=== PATIENT | male | born 1975 | race Caucasian/White ===

== ENCOUNTER 2020-02-22 10:12 | Outpatient (REF) | payer MEDICARE, MEDICAID, SELFPAY ==
[2020-02-22 11:38] LABS: Alanine Aminotransferase 27 U/L (0-40); Albumin Level 4.2 g/dL (3.5-5.0); Alkaline Phosphatase 69 U/L (39-117); Aspartate Amino Transferase 22 U/L (5-37); Bilirubin Direct 0.2 mg/dL (0.0-0.5); Bilirubin Total 0.6 mg/dL (0.0-1.0); Total Protein 7.1 g/dL (6.5-8.0)
[2020-02-22 11:44] LABS: Valproate 75.6 mcg/mL (50.0-100.0)
== END 2020-02-22 10:13 | disposition home or self-care (01) ==
LOC: HO.LAB 10:12
PROVIDERS: PCP Internal Medicine; Visit Provider General Practice
DX: F31.77 Bipolar disorder, in partial remission, most recent episode mixed (principal); F63.9 Impulse disorder, unspecified; Z79.899 Other long term (current) drug therapy
CPT/HCPCS: 80076; 80164

== ENCOUNTER 2020-06-14 11:12 | Outpatient (REF) | payer MEDICARE, MEDICAID, SELFPAY ==
[2020-06-14 11:50] LABS: Hematocrit 46.8 % (42-52); Hemoglobin 15.6 g/dl (14.0-18.0); Mean Corpuscular HGB Conc 33.3 g/dl (31.0-36.0); Mean Corpuscular Hemoglobin 29.3 pg (27.0-33.0); Platelet Count 226 X10*3/uL (160-400); Red Blood Count 5.32 X10*6/uL (4.60-5.80); Red Cell Distribution Width 12.8 % (11.0-16.0); White Blood Count 9.2 X10*3/uL (4.8-10.8)
[2020-06-14 12:03] LABS: Estimated Average Glucose 105 mg/dL; Hemoglobin A1c % 5.3 %
[2020-06-14 12:25] LABS: Alanine Aminotransferase 34 U/L (0-40); Albumin Level 4.7 g/dL (3.5-5.0); Alkaline Phosphatase 89 U/L (39-117); Anion Gap 11 (12-20); Aspartate Amino Transferase 30 U/L (5-37); Bilirubin Total 0.6 mg/dL (0.0-1.0); Blood Urea Nitrogen 15 mg/dL (9-16); Calcium 9.6 mg/dL (8.4-10.2); Carbon Dioxide 27 mmol/L (22-29); Chloride 101 mmol/L (96-108); Cholesterol 178 mg/dL; Estimated Glomerular Filt Rate > 60; Glucose Fasting 97 mg/dL (60-99); HDL Cholesterol 53 mg/dL; LDL Cholesterol Calculated 103 mg/dl; Potassium 4.2 mmol/L (3.3-5.1); Sodium 135 mmol/L (135-145); Total Protein 8.1 g/dL (6.5-8.0); Triglycerides 111 mg/dL
[2020-06-14 12:44] LABS: TSH reflex Free T4 2.01 uIU/mL (0.32-4.0)
== END 2020-06-14 11:13 | disposition home or self-care (01) ==
LOC: HO.LAB 11:12
PROVIDERS: PCP Internal Medicine; Visit Provider Physician Assistant
DX: E66.01 Morbid (severe) obesity due to excess calories (principal); Z68.41 Body mass index [BMI] 40.0-44.9, adult; Z13.1 Encounter for screening for diabetes mellitus
CPT/HCPCS: 36415; 80053; 80061; 83036; 84443; 85027

== ENCOUNTER 2021-05-29 09:19 | Outpatient (REF) | payer MEDICARE, MEDICAID, SELFPAY ==
[2021-05-29 10:16] LABS: Hematocrit 43.2 % (42.0-52.0); Hemoglobin 14.5 g/dl (14.0-18.0); Mean Corpuscular HGB Conc 33.6 g/dl (31.0-36.0); Mean Corpuscular Hemoglobin 29.7 pg (27.0-33.0); Mean Corpuscular Volume 88.3 fL (80.0-98.0); Mean Platelet Volume 10.8 fL (9.4-12.4); Platelet Count 225 X10*3/uL (160-400); Red Blood Count 4.89 X10*6/uL (4.60-5.80); Red Cell Distribution Width 12.9 % (11.0-16.0); White Blood Count 7.5 X10*3/uL (4.8-10.8)
[2021-05-29 10:49] LABS: Estimated Average Glucose 108 mg/dL; Hemoglobin A1c % 5.4 %
[2021-05-29 10:57] LABS: Valproate 80.1 mcg/mL (50.0-100.0)
[2021-05-29 11:07] LABS: Alanine Aminotransferase 34 U/L (0-40); Albumin Level 4.4 g/dL (3.5-5.0); Alkaline Phosphatase 79 U/L (39-117); Aspartate Amino Transferase 26 U/L (5-37); Bilirubin Direct 0.2 mg/dL (0.0-0.5); Bilirubin Total 0.5 mg/dL (0.0-1.0); Total Protein 7.7 g/dL (6.5-8.0)
[2021-05-29 11:14] LABS: Alanine Aminotransferase 35 U/L (0-40); Albumin Level 4.5 g/dL (3.5-5.0); Alkaline Phosphatase 79 U/L (39-117); Anion Gap 14 (12-20); Aspartate Amino Transferase 28 U/L (5-37); Bilirubin Total 0.6 mg/dL (0.0-1.0); Blood Urea Nitrogen 11 mg/dL (9-16); Calcium 9.8 mg/dL (8.4-10.2); Carbon Dioxide 25 mmol/L (22-29); Chloride 105 mmol/L (96-108); Cholesterol 160 mg/dL; Estimated Glomerular Filt Rate > 60; Glucose Fasting 112 mg/dL (60-99); HDL Cholesterol 52 mg/dL; LDL Cholesterol Calculated 91 mg/dl; Potassium 4.4 mmol/L (3.3-5.1); Sodium 140 mmol/L (135-145); Triglycerides 89 mg/dL
== END 2021-05-29 09:20 | disposition home or self-care (01) ==
LOC: HO.LAB 09:19
PROVIDERS: Absent Provider General Practice; PCP Physician Assistant; Visit Provider Physician Assistant
DX: Z13.220 Encounter for screening for lipoid disorders (principal); Z13.29 Encounter for screening for other suspected endocrine disorder; F31.77 Bipolar disorder, in partial remission, most recent episode mixed; I10 Essential (primary) hypertension; Z79.899 Other long term (current) drug therapy
CPT/HCPCS: 36415; 80053; 80061; 80076; 80164; 82248; 83036; 84443; 85027

== ENCOUNTER 2021-10-11 09:36 | Outpatient (REF) | payer MEDICARE, MEDICAID, SELFPAY ==
[2021-10-11 11:35] LABS: Valproate 67.5 mcg/mL (50.0-100.0)
== END 2021-10-11 09:37 | disposition home or self-care (01) ==
LOC: HO.LAB 09:36
PROVIDERS: PCP Physician Assistant; Visit Provider General Practice
DX: Z79.899 Other long term (current) drug therapy (principal)
CPT/HCPCS: 36415; 80164

== ENCOUNTER 2022-10-10 09:15 | Outpatient (REF) | payer MEDICARE, MEDICAID, SELFPAY ==
[2022-10-10 10:23] LABS: Hematocrit 42.9 % (42.0-52.0); Hemoglobin 14.1 g/dl (14.0-18.0); Mean Corpuscular HGB Conc 32.9 g/dl (31.0-36.0); Mean Corpuscular Hemoglobin 29.2 pg (27.0-33.0); Mean Corpuscular Volume 88.8 fL (80.0-98.0); Mean Platelet Volume 11.1 fL (9.4-12.4); Platelet Count 213 X10*3/uL (160-400); Red Blood Count 4.83 X10*6/uL (4.60-5.80); Red Cell Distribution Width 12.8 % (11.0-16.0); White Blood Count 7.2 X10*3/uL (4.8-10.8)
[2022-10-10 11:07] LABS: Alanine Aminotransferase 29 U/L (0-40); Albumin Level 4.2 g/dL (3.5-5.0); Alkaline Phosphatase 66 U/L (39-117); Anion Gap 13 (12-20); Aspartate Amino Transferase 22 U/L (5-37); Bilirubin Total 0.7 mg/dL (0.0-1.0); Blood Urea Nitrogen 14 mg/dL (9-16); Calcium 9.2 mg/dL (8.4-10.2); Carbon Dioxide 25 mmol/L (22-29); Chloride 106 mmol/L (96-108); Cholesterol 149 mg/dL; Estimated Glomerular Filt Rate > 60; Glucose Fasting 111 mg/dL (60-99); HDL Cholesterol 47 mg/dL; LDL Cholesterol Calculated 86 mg/dl; Potassium 4.1 mmol/L (3.3-5.1); Sodium 140 mmol/L (135-145); Total Protein 7.6 g/dL (6.5-8.0); Triglycerides 80 mg/dL
[2022-10-10 11:15] LABS: TSH reflex Free T4 1.95 uIU/mL (0.32-4.0)
== END 2022-10-10 09:16 | disposition home or self-care (01) ==
LOC: HO.LAB 09:15
PROVIDERS: PCP Physician Assistant; Visit Provider Physician Assistant
DX: I10 Essential (primary) hypertension (principal)
CPT/HCPCS: 36415; 80053; 80061; 84443; 85027

== ENCOUNTER 2022-12-05 15:34 | Outpatient (AMB) | payer MEDICARE, MEDICAID, SELFPAY ==
[2022-12-05 15:38] VITALS: BP 124/72; PULSE 75; O2SAT 98; BMI 51.7
--- NOTE | 2022-12-05 15:38 | A.OFFPC_ITS ---
Vital Signs 12/05/22 15:38 Height 5 ft 7 in Weight 330 lb BMI 51.7 BP 124/72 Blood Pressure Location Lt brachial Position Sitting Pulse 75 Pulse Source Pulse Oximeter Pulse Oximetry (%) 98 Oxygen Delivery Method Room Air Intake Visit Reasons: f/u HTN- Weight check. Intake Note: Patient is here to follow up on HTN and weight check. 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 Accompanied by: Rishi-Program Staff Allergies bee pollen [BEE STINGS] Allergy (Mild, Verified 12/05/22 15:44) SWELLING Medication List - Last Reconciled 12/05/22 by Carl Pena PA-C acetaminophen 1,000 mg (2 x 500 mg) PO Q6H PRN bismuth subsalicylate ([place] Bismuth) 524 mg (30 mL) PO QID PRN 30 days chlorhexidine gluconate 0.12% mL PO divalproex 250 mg PO BEDTIME divalproex 500 mg PO BID epinephrine (EpiPen) 0.3 mg (0.3 mL) IM Q10M PRN 30 days lisinopril 30 mg PO DAILY 90 days miscellaneous medical supply (Blood Pressure Cuff) As directed pantoprazole 20 mg PO DAILY 90 days Tobacco use date assessed: 09/04/22 Dental Screening Dental Screen Date: 12/05/22 Did you have a dental visit in the last 12 months?: Yes Did you have a dental problem in the last 6 months where you did not have access to dental care?: No Was dental information given to patient?: Patient has dentist HPI f/u HTN- Weight check. HPI Details Bryant is a 47-year-old male here today for a follow up. Patient has a past medical history of GERD, bipolar 1 disorder, obesity. ? . ? Bipolar: Followed by Psych, continues on divalproex and? feels well. Continues to work in [employer] now wearing long sleeves and long pants during his shifts to reduce his recurrence contact dermatitis poison kaitlynn. .. Hypertension:? Blood pressure noted to be elevated at previous office visit. We increased his lisinopril dose to 30 mg an blood pressures today much improved., .. Obesity:? Has lost 12 lb since last office visit. Has been more physically active and adapting to better eating habits..? Continues to be elevated BMI and will continue working on being more physically active and at that and better eating habits to reduce his weight. [facility] Medical History (Updated 12/05/22 @ 16:25 by Carl Pena PA-C) H/O anaphylactic shock Surgical History History of open reduction and internal fixation (ORIF) procedure Family History Father Diabetes CVD (cardiovascular disease) Mother No problems noted. Maternal Grandfather Myocardial infarction Social History Housing: House Housing Other:: Short Living-Shelter. Alcohol intake: current Alcohol intake frequency: holidays/special occasions only Patient Tobacco Use Status: Current someday Tobacco user e-Cigarette/Vaping Use: Never Used Second Hand Smoke Exposure: No service: No Current occupational status: employed Current occupation: [employer] Cognitive needs: No Hearing needs: No Vision needs: Yes (glasses) Questionnaire Thrive Questionnaire Date Thrive assessed: 09/04/22 MIRI-7 AMB Questionnaire MIRI-7 Date MIRI - 7 assessed: 09/04/22 Source: Developed by Drs. Hesham Vidal, Cherelle Gusman, Lex Eckert and colleagues, with an educational andrew from [employer]. Review of Systems Const Denies headache(s) Eyes Denies loss of vision ENT Denies vertigo, Denies dizziness, Denies headache(s) and Denies sore throat Card Denies chest pain, Denies leg edema and Denies lightheadedness Resp Denies cough, Denies hemoptysis and Denies wheezing GI Denies abdominal pain, Denies melena, Denies constipation, Denies diarrhea and Denies vomiting Denies dysuria, Denies urinary frequency and Denies urinary urgency Musc Denies arthralgias, Denies joint swelling, Denies numbness and Denies tingling Neuro Denies Abnormal speech present, Denies behavioral changes, Denies vertigo, Denies dizziness, Denies headache(s), Denies loss of vision, Denies memory loss, Denies numbness and Denies tingling Psych Denies anxiety, Denies behavioral changes, Denies depression, Denies memory loss and Denies panic attacks Faizan/Lymph Denies easy bleeding and Denies easy bruising Aller/Immun Denies wheezing Physical exam (Primary Care) Vital Signs: Last Vital Signs Pulse 75 12/05/22 15:38 BP 124/72 12/05/22 15:38 Pulse Ox 98 12/05/22 15:38 Oxygen Delivery Method Room Air 12/05/22 15:38 BMI result Body Mass Index 51.7 BMI Assessment/Plan discussion: High Tobacco/Smoking Status: Tobacco use Status Tobacco use date assessed 09/04/22 12/05/22 15:38 Patient Tobacco Use Status Current someday Tobacco 12/05/22 15:38 e-Cigarette/Vaping Use Never Used 12/05/22 15:38 Thrive Assessment: Date of Thrive Assessment Date Thrive assessed 09/04/22 12/05/22 15:38 Const Other: Obese General: no acute distress, alert and awake Nutritional Appearance: well nourished Orientation/consciousness: oriented to person, oriented to place and oriented to time HENMT Ears: TM's normal bilaterally General nose exam: Normal nasal mucous membranes and turbinates present Eyes Conjunctivae: conjunctivae normal Sclerae: sclerae normal Pupils: Equal, round and reactive pupils present Neck Neck: Yes no lymphadenopathy and Yes no JVD Thyroid: Thyroid normal Carotids: no bruits Resp Effort & Inspection: normal respiratory effort and not tachypneic Auscultation: no crackles, no rales, no rhonchi and no wheezes Cardio Rate: regular rate Rhythm: regular rhythm Heart sounds: no murmurs and normal S1 and S2 GI Palpation (GI): Soft to palpation, nontender, no hepatomegaly and no splenomegaly Auscultation: normal bowel sounds Skin General skin exam: no rashes or lesions noted and dry skin Neuro General: oriented to person, oriented to place and oriented to time Cranial nerves: Yes Equal, round and reactive pupils present Speech: No Abnormal speech present Gait exam (Neuro): Normal gait present Motor exam (neuro): no tremor noted Extrem Right upper extremity: full ROM Left upper extremity: full ROM Right lower extremity: full ROM; no edema Left lower extremity: full ROM; no edema Psych Mental Status: mental status grossly normal Speech and movement: Normal speech and movement present Affect: normal affect Attitude: cooperative Thought process: Normal thought process present Assessment and Plan Assessment & Plan (1) HTN (hypertension): Code(s): I10 - Essential (primary) hypertension Qualifiers: Hypertension type: primary hypertension Qualified Code(s): I10 - Essential (primary) hypertension Plan: Patient's blood pressure acceptable today in office. Will continue his current dose of lisinopril 30 mg with goal blood pressure to remain below 140/90 (2) Impaired glucose metabolism: Code(s): R73.09 - Other abnormal glucose Plan: Patient continues to slightly elevated fasting blood sugar. Will continue to work on lifestyle modifications and dietary adjustments to reduce his elevated fasting blood sugar. (3) Obese: Code(s): E66.9 - Obesity, unspecified Qualifiers: Body mass index: BMI 50.0-59.9 Obesity classification: adult class 3 (BMI >= 40) Obesity type: due to excess calories Serious obesity comorbidity presence: without serious comorbidity Qualified Code(s): E66.01 - Morbid (severe) obesity due to excess calories; Z68.43 - Body mass index [BMI] 50.0- 59.9, adult Plan: Patient does understand his BMI is over 50 and will continue working on lifestyle modifications to reduce his weight. Orders: Orders Comprehensive [place]. Panel Fast 6 Months I10 - Essential (primary) hypertension Complete Blood Count no Diff 6 Months K21.9 - Gastro-esophageal reflux disease without esophagitis Valproate 6 Months F31.75 - Bipolar disorder, in partial remission, most recent episode depressed Medications: New dextromethorphan-guaifenesin 5-100 mg/5 mL (Robitussin Cough-Chest Congestion DM) 10 mL PO Q4-8H 30 days PRN 118 mL 1RF cough Refilled epinephrine (EpiPen) for 2 doses 0.3 mg (0.3 mL) IM Q10M 30 days PRN 2 ea 0RF anaphylaxis Z87.892 - Personal history of anaphylaxis acetaminophen 1,000 mg (2 x 500 mg) PO Q6H PRN 90 caps 3RF fever or pain M54.9 - Dorsalgia, unspecified Coding Level of Care Code Est Pt Level 4 (97351) Diagnoses HTN (hypertension) I10 Hypertension type: primary hypertension Impaired glucose metabolism R73.09 Obese E66.01; Z68.43 Body mass index: BMI 50.0-59.9 Obesity classification: adult class 3 (BMI >= 40) Obesity type: due to excess calories Serious obesity comorbidity presence: without serious comorbidity
== END 2022-12-05 16:03 | disposition home or self-care (01) ==
PROVIDERS: Visit Provider Physician Assistant
DX: I10 Essential (primary) hypertension (principal); R73.09 Other abnormal glucose; E66.01 Morbid (severe) obesity due to excess calories; Z68.43 Body mass index [BMI] 50.0-59.9, adult
CPT/HCPCS: 99214

== ENCOUNTER 2023-02-05 10:00 | Outpatient (REF) | payer MEDICARE, MEDICAID, SELFPAY ==
[2023-02-05 11:14] LABS: Valproate < 12.5 mcg/mL (50.0-100.0)
[2023-02-05 11:15] LABS: Alanine Aminotransferase 22 U/L (0-40); Albumin Level 4.5 g/dL (3.5-5.0); Alkaline Phosphatase 105 U/L (39-117); Aspartate Amino Transferase 19 U/L (5-37); Bilirubin Direct 0.1 mg/dL (0.0-0.5); Bilirubin Total 0.3 mg/dL (0.0-1.0); Total Protein 8.2 g/dL (6.5-8.0)
== END 2023-02-05 10:01 | disposition home or self-care (01) ==
LOC: HO.LAB 10:00
PROVIDERS: Absent Provider General Practice; Visit Provider Physician Assistant
DX: F31.77 Bipolar disorder, in partial remission, most recent episode mixed (principal); Z79.899 Other long term (current) drug therapy
CPT/HCPCS: 36415; 80076; 80164

== ENCOUNTER 2023-03-20 09:47 | Outpatient (REF) | payer MEDICARE, MEDICAID, SELFPAY ==
--- NOTE | ~2023-03-20 | XR_ITS ---
EXAMINATION: XR HIP, RIGHT XR ANKLE, RIGHT CLINICAL INFORMATION: Pain in right ankle and joints of foot. Pain in right hip. COMPARISON: None available. TECHNIQUE: 3 views of the right ankle. AP and lateral views of the right hip. FINDINGS: RIGHT ANKLE: Small plantar calcaneal spur. Joint effusion. Ossicle adjacent to the medial malleolus, possibly corticated, of indeterminate age. Focal area of sclerosis in the distal tibia, possibly representing a bone island. Degenerative changes with hypertrophic change along the anterior tibiotalar joint. RIGHT HIP: Severe deformity with flattening and remodeling of the femoral head and neck. Severe degenerative changes along the superior lateral aspect of the hip joint with [id number], subchondral sclerosis and hypertrophic change with relative lateral location of the femoral head. XR/XR hip RT min 2V IMPRESSION: 1. Degenerative changes in the right ankle as described. Recommend follow-up imaging in 10-14 days if fracture is suspected. 2. Severe degenerative changes and deformity of the right hip as described of indeterminate etiology, but possibly related to prior trauma versus congenital anomaly and/or other chronic process. Direct correlation with prior images is recommended and if prior images are provided, an addendum will be dictated. Correlation with clinical exam recommended to determine further management. If there is concern for fracture or other underlying pathology, MRI could be obtained for further evaluation.
--- NOTE | ~2023-03-20 | XR_ITS ---
EXAMINATION: XR HIP, RIGHT XR ANKLE, RIGHT CLINICAL INFORMATION: Pain in right ankle and joints of foot. Pain in right hip. COMPARISON: None available. TECHNIQUE: 3 views of the right ankle. AP and lateral views of the right hip. FINDINGS: RIGHT ANKLE: Small plantar calcaneal spur. Joint effusion. Ossicle adjacent to the medial malleolus, possibly corticated, of indeterminate age. Focal area of sclerosis in the distal tibia, possibly representing a bone island. Degenerative changes with hypertrophic change along the anterior tibiotalar joint. RIGHT HIP: Severe deformity with flattening and remodeling of the femoral head and neck. Severe degenerative changes along the superior lateral aspect of the hip joint with [id number], subchondral sclerosis and hypertrophic change with relative lateral location of the femoral head. XR/XR ankle RT 2V IMPRESSION: 1. Degenerative changes in the right ankle as described. Recommend follow-up imaging in 10-14 days if fracture is suspected. 2. Severe degenerative changes and deformity of the right hip as described of indeterminate etiology, but possibly related to prior trauma versus congenital anomaly and/or other chronic process. Direct correlation with prior images is recommended and if prior images are provided, an addendum will be dictated. Correlation with clinical exam recommended to determine further management. If there is concern for fracture or other underlying pathology, MRI could be obtained for further evaluation.
== END 2023-03-20 09:48 | disposition home or self-care (01) ==
LOC: HO.XRAY 09:47
PROVIDERS: PCP Physician Assistant; Visit Provider Physician Assistant
DX: M25.551 Pain in right hip (principal); M25.571 Pain in right ankle and joints of right foot
CPT/HCPCS: 73502; 73600

== ENCOUNTER 2023-04-04 08:17 | Outpatient (REF) | payer MEDICARE, MEDICAID, SELFPAY | END 2023-04-04 08:18 | disposition home or self-care (01) | LOC: HO.HOSX 08:17 | PROVIDERS: Visit Provider Orthopaedic Surgery | DX: M16.50 Unilateral post-traumatic osteoarthritis, unspecified hip (principal) | CPT/HCPCS: 72170; 99202 ==

== ENCOUNTER 2023-04-04 12:04 | Outpatient (AMB) | payer MEDICARE, MEDICAID, SELFPAY ==
--- NOTE | 2023-04-04 12:15 | MHC.OFFVIS ---
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 He fell while at [facility] about 20 years ago, wher he broke his hip. Following this injury he had surgery with [facility]. Since then the hardware was removed. His pain is felt on the lateral aspect of the hip and radiated to the knee. He will need a work note. 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 He actually denies pain and states he has had a limp for years. He states he occasionally has soreness but does not feel limited. He lives in a halfway and is here today for clearance? [facility] Medical History (Updated 04/05/23 @ 08:14 by Nikolas Castillo MD) H/O anaphylactic shock Surgical History History of open reduction and internal fixation (ORIF) procedure Family History Father Diabetes CVD (cardiovascular disease) Mother No problems noted. Maternal Grandfather Myocardial infarction Social History Housing: House Housing Other:: Short Living-Intermediate. Alcohol intake: current Alcohol intake frequency: holidays/special occasions only Patient Tobacco Use Status: Current someday Tobacco user e-Cigarette/Vaping Use: Never Used Second Hand Smoke Exposure: No service: No Current occupational status: employed Current occupation: [employer] Cognitive needs: No Hearing needs: No Vision needs: Yes (glasses) Physical Exam Extrem Other: Right LLD with trendelenberg gait but no antalgia. Internal rotation limited but neg impingement. Results Reviewed Results Reviewed: I personally reviewed relevant radiographs. Severe degenerative changes and deformity of the right hip as described of indeterminate etiology, but possibly related to prior trauma versus congenital anomaly and/or other chronic process. Assessment & Plan Assessment & Plan (1) Post traumatic osteoarthritis of hip: Code(s): M16.50 - Unilateral post-traumatic osteoarthritis, unspecified hip Plan: Post traumatic OA with minimal symptoms. modrbidly obese. I discussed weight loss and I suggest he continue activity as tolerated. There are no formal restrictions at this time. Orders: Orders XR pelvis 1-2V 04/04/23 M25.559 - Pain in unspecified hip Coding Level of Care Code New Pt Level 4 (55570) Diagnoses Post traumatic osteoarthritis of hip M16.50
== END 2023-04-04 12:37 | disposition home or self-care (01) ==
PROVIDERS: PCP Physician Assistant; Visit Provider Orthopaedic Surgery
DX: M16.51 Unilateral post-traumatic osteoarthritis, right hip (principal)
CPT/HCPCS: 99204

== ENCOUNTER 2023-06-09 15:33 | Outpatient (AMB) | payer MEDICARE, MEDICAID, SELFPAY ==
[2023-06-09 15:33] VITALS: BP 136/76; PULSE 80; O2SAT 98; BMI 53.1
--- NOTE | 2023-06-09 15:33 | A.OFFPC_ITS ---
Vital Signs 06/09/23 15:33 Height 5 ft 7 in Weight 338 lb 13.608 oz BMI 53.1 BP 136/76 Blood Pressure Location Lt brachial Position Sitting Pulse 80 Pulse Source Pulse Oximeter Pulse Oximetry (%) 98 Oxygen Delivery Method Room Air Intake Visit Reasons: f/u HTN/ weight. Checker/Stocker Required: No Accompanied by: Program Allergies bee pollen [BEE STINGS] Allergy (Mild, Verified 06/09/23 15:43) SWELLING Medication List - Last Reconciled 06/09/23 by Carl Pena PA-C acetaminophen 1,000 mg (2 x 500 mg) PO Q6H PRN bismuth subsalicylate ([place] Bismuth) 524 mg (30 mL) PO QID PRN 30 days chlorhexidine gluconate 0.12% mL PO dextromethorphan-guaifenesin 5-100 mg/5 mL (Robitussin Cough-Chest Congestion DM) 10 mL PO Q4-8H PRN 30 days divalproex 250 mg PO BEDTIME divalproex 500 mg PO BID epinephrine (EpiPen) 0.3 mg (0.3 mL) IM Q10M PRN 30 days lisinopril 30 mg PO DAILY 90 days miscellaneous medical supply (Blood Pressure Cuff) As directed pantoprazole 20 mg PO DAILY 90 days Tobacco use date assessed: 06/09/23 Dental Screening Dental Screen Date: 06/09/23 Did you have a dental visit in the last 12 months?: Yes Did you have a dental problem in the last 6 months where you did not have access to dental care?: No Was dental information given to patient?: Patient has dentist HPI f/u HTN/ weight. HPI Details Bryant is a 48-year-old male here today for a follow up. Patient has a past medical history of GERD, bipolar 1 disorder, obesity. Concern--> has noted an area of eczema over his left upper extremity that he would like a cream for. Hip osteoarthritis: Was found to have fairly severe osteoarthritis of his right hip. Has followed up with Orthopedic and is too young for surgery at this time though will likely need surgery in the next 5-10 years. ? . ? Bipolar: Followed by Psych, continues on divalproex and? feels well. Continues to work in [employer] now wearing long sleeves and long pants during his shifts to reduce his recurrence contact dermatitis poison kaitlynn. .. Hypertension:? Blood pressure noted to be acceptable today in office. .. Obesity:? Unfortunately gained weight since last office visit. Has been more physically active and adapting to better eating habits..? Continues to be elevated BMI and will continue working on being more physically active and at that and better eating habits to reduce his weight. [facility] Medical History (Updated 06/09/23 @ 15:54 by Carl Pena PA-C) H/O anaphylactic shock Surgical History History of open reduction and internal fixation (ORIF) procedure Family History Father Diabetes CVD (cardiovascular disease) Mother No problems noted. Maternal Grandfather Myocardial infarction Social History Housing: House Housing Other:: Short Living-[facility]. Alcohol intake: current Alcohol intake frequency: holidays/special occasions only Patient Tobacco Use Status: Current someday Tobacco user e-Cigarette/Vaping Use: Never Used Second Hand Smoke Exposure: No service: No Current occupational status: employed Current occupation: [employer] Cognitive needs: No Hearing needs: No Vision needs: Yes (glasses) Questionnaire PHQ-9 Over the last 2 weeks, how often have you been bothered by any of the following problems? 1. Little interest or pleasure in doing things: not at all 2. Feeling down, depressed, or hopeless: not at all 3. Trouble falling or staying asleep, or sleeping too much: not at all 4. Feeling tired or having little energy: not at all 5. Poor appetite or overeating: not at all 6. Feeling bad about yourself - or that you are a failure or have let yourself or your family down: not at all 7. Trouble concentrating on things, such as reading the newspaper or watching television: not at all 8. Moving or speaking so slowly that other people could have noticed. Or the opposite - being so fidgety or restless that you have been moving around a lot more than usual: not at all 9. Thoughts that you would be better off or of hurting yourself in some way: not at all Total score: 0 Depression Screening Interpretation: Negative Depression Screening Done: Yes 28038 - PHQ-9 Billing: Yes Source: Developed by Drs. Hesham Vidal, Cherelle Gusman, Lex Eckert and colleagues, with an educational andrew from [employer]. Thrive Questionnaire Date Thrive assessed: 06/09/23 I am a: Patient What is your living situation today?: I have a steady place to live Within the past 12 months, did the food you bought not last and you didn't have the money to get more?: Never true Within the past 12 months, did you worry whether your food would run out before you got money to buy more?: Never true Do you have trouble paying for medicines?: No Do you have trouble getting transportation to medical appointments?: No Do you have trouble paying your heating and electricity bill?: No Do you have trouble taking care of your child, family member or friend?: No Do you have trouble with day-to-day activities such as bathing, preparing meals, shopping, managing finances, etc.?: No Are you currently unemployed and looking for a job?: No Are you interested in more education?: No Please select the resources that you would like help with: None Currently or been in a relationship where the following occur: no concerns reported THRIVE Score: 0 AUDIT C Alcohol Use Questionnaire (AUDIT-C) 1. How often do you have a drink containing alcohol?: Never 3. How often do you have six or more drinks on one occasion?: Never Total Score: 0 MIRI-7 AMB Questionnaire MIRI-7 Date MIRI - 7 assessed: 06/09/23 Feeling nervous, anxious, or on edge: 0 = Not at all Not being able to stop or control worryin = Not at all Worrying too much about different things: 0 = Not at all Trouble relaxin = Not at all Being so restless that it is hard to sit still: 0 = Not at all Becoming easily annoyed or irritable: 0 = Not at all Feeling afraid as if something awful might happen: 0 = Not at all Total MIRI-7 score (0-4 normal; 5-9 mild; 10-14 moderate; 15-21 severe): 0 Source: Developed by Drs. Hesham Vidal, Cherelle Gusman, Lex Eckert and colleagues, with an educational andrew from [employer]. MIRI-7 Assessment Billing MIRI-7 Assessment Tool: MIRI-7 Assessment 88201 Review of Systems Const Denies headache(s) Eyes Denies loss of vision ENT Denies vertigo, Denies dizziness, Denies headache(s) and Denies sore throat Card Denies chest pain, Denies leg edema and Denies lightheadedness Resp Denies cough, Denies hemoptysis and Denies wheezing GI Denies abdominal pain, Denies melena, Denies constipation, Denies diarrhea and Denies vomiting Denies dysuria, Denies urinary frequency and Denies urinary urgency Musc Denies arthralgias, Denies joint swelling, Denies numbness and Denies tingling Neuro Denies Abnormal speech present, Denies behavioral changes, Denies vertigo, Denies dizziness, Denies headache(s), Denies loss of vision, Denies memory loss, Denies numbness and Denies tingling Psych Denies anxiety, Denies behavioral changes, Denies depression, Denies memory loss and Denies panic attacks Faizan/Lymph Denies easy bleeding and Denies easy bruising Aller/Immun Denies wheezing Physical exam (Primary Care) Vital Signs: Last Vital Signs Pulse 80 06/09/23 15:33 BP 136/76 06/09/23 15:33 Pulse Ox 98 06/09/23 15:33 Oxygen Delivery Method Room Air 06/09/23 15:33 BMI result Body Mass Index 53.1 BMI Assessment/Plan discussion: High Tobacco/Smoking Status: Tobacco use Status Tobacco use date assessed 06/09/23 06/09/23 15:35 Patient Tobacco Use Status Current someday Tobacco 06/09/23 15:35 e-Cigarette/Vaping Use Never Used 06/09/23 15:35 PHQ-9: PHQ-9 Score PHQ-9: Total score 0 06/09/23 15:46 Depression Screening Interpretation: Negative Thrive Assessment: Date of Thrive Assessment Date Thrive assessed 06/09/23 06/09/23 15:35 Currently or been in a relationship where the following occur: no concerns reported Const Other: Morbidly obese General: healthy appearing, no acute distress, alert and awake Nutritional Appearance: well nourished Orientation/consciousness: oriented to person, oriented to place and oriented to time HENMT Ears: TM's normal bilaterally General nose exam: Normal nasal mucous membranes and turbinates present Eyes Conjunctivae: conjunctivae normal Sclerae: sclerae normal Pupils: Equal, round and reactive pupils present Neck Neck: Yes no lymphadenopathy and Yes no JVD Thyroid: Thyroid normal Carotids: no bruits Resp Effort & Inspection: normal respiratory effort and not tachypneic Auscultation: no crackles, no rales, no rhonchi and no wheezes Cardio Rate: regular rate Rhythm: regular rhythm Heart sounds: no murmurs and normal S1 and S2 GI Palpation (GI): Soft to palpation, nontender, no hepatomegaly and no splenomegaly Auscultation: normal bowel sounds Skin Other: DRY SCALY CIRCULAR AREA OF SKIN OVER THE RIGHT UPPER EXTREMITY. General skin exam: dry skin Neuro General: oriented to person, oriented to place and oriented to time Cranial nerves: Yes Equal, round and reactive pupils present Speech: No Abnormal speech present Gait exam (Neuro): Normal gait present Motor exam (neuro): no tremor noted Extrem Right upper extremity: full ROM Left upper extremity: full ROM Right lower extremity: full ROM; no edema Left lower extremity: full ROM; no edema Psych Mental Status: mental status grossly normal Speech and movement: Normal speech and movement present Affect: normal affect Attitude: cooperative Thought process: Normal thought process present Assessment and Plan Assessment & Plan (1) HTN (hypertension): Code(s): I10 - Essential (primary) hypertension Qualifiers: Hypertension type: primary hypertension Qualified Code(s): I10 - Essential (primary) hypertension Plan: Patient's blood pressure acceptable today in office. Will continue him on his current dose of lisinopril. Goal blood pressures to be below 140/90 (2) Osteoarthritis of right hip: Code(s): M16.11 - Unilateral primary osteoarthritis, right hip Qualifiers: Osteoarthritis type: primary Qualified Code(s): M16.11 - Unilateral primary osteoarthritis, right hip Plan: Was found to have fairly severe osteoarthritis of the right hip for his age. Has followed up with Orthopedic whom recommends replacement though not until he is in his 50s. (3) Obese: Code(s): E66.9 - Obesity, unspecified Qualifiers: Body mass index: BMI 50.0-59.9 Obesity classification: adult class 3 (BMI >= 40) Obesity type: due to excess calories Serious obesity comorbidity presence: without serious comorbidity Qualified Code(s): E66.01 - Morbid (severe) obesity due to excess calories; Z68.43 - Body mass index [BMI] 50.0- 59.9, adult Plan: Patient does understand his BMI is well 50 will try to be more physically active and adapt to better eating habits to reduce his weight. (4) Impaired glucose metabolism: Code(s): R73.09 - Other abnormal glucose Plan: Most recent fasting blood sugar 111, will check an A1c to evaluate for type 2 diabetes Orders: Orders ECG 12 lead EKG 06/09/23 I10 - Essential (primary) hypertension Hemoglobin A1c 06/09/23 R73.09 - Other abnormal glucose Microalbumin, Random (w Creat) 06/09/23 I10 - Essential (primary) hypertension Complete Blood Count no Diff 06/09/23 K21.9 - Gastro-esophageal reflux disease without esophagitis Comprehensive [place]. Panel Fast 06/09/23 I10 - Essential (primary) hypertension Testosterone, Free/Total 06/09/23 E66.01 - Morbid (severe) obesity due to excess calories, Z68.43 - Body mass index [BMI] 50.0-59.9, adult Medications: New triamcinolone acetonide 0.5% apply a thin layer to affected layer 1 appl topical DAILY 30 days 15 grams 1RF L30.9 - Dermatitis, unspecified triamcinolone acetonide 0.5% apply a thin layer to affected layer 1 appl topical .in the morning 30 days PRN 15 grams 1RF skin irritation L30.9 - Dermatitis, unspecified Discontinued dextromethorphan-guaifenesin 5-100 mg/5 mL (Robitussin Cough-Chest Congestion DM) Discontinued Reason: Change Referral Type 10 mL PO Q4-8H 30 days PRN 118 mL 1RF cough Coding Level of Care Code Est Pt Level 4 (40535) Diagnoses Primary hypertension I10 Hypertension type: primary hypertension Primary osteoarthritis of right hip M16.11 Osteoarthritis type: primary Class 3 severe obesity due to excess calories without serious comorbidity with body mass index (BMI) of 50.0 to 59.9 in adult E66.01; Z68.43 Body mass index: BMI 50.0-59.9 Obesity classification: adult class 3 (BMI >= 40) Obesity type: due to excess calories Serious obesity comorbidity presence: without serious comorbidity Impaired glucose metabolism R73.09 Additional Codes MIRI-7 Assessment Billing - MIRI-7 Assessment Tool: MIRI-7 Assessment 93539 ([id number])
== END 2023-06-09 16:05 | disposition home or self-care (01) ==
PROVIDERS: PCP Physician Assistant; Visit Provider Physician Assistant
DX: I10 Essential (primary) hypertension (principal); M16.11 Unilateral primary osteoarthritis, right hip; E66.01 Morbid (severe) obesity due to excess calories; Z68.43 Body mass index [BMI] 50.0-59.9, adult; R73.09 Other abnormal glucose
CPT/HCPCS: 99214

== ENCOUNTER 2023-06-22 14:33 | Emergency (ER) | payer MEDICARE, MEDICAID, SELFPAY ==
[2023-06-22 15:12] VITALS: BP 145/86; PULSE 56; RESP 17; TEMP 36.6; O2SAT 98; BMI 51.4
--- NOTE | 2023-06-22 15:12 | ED.SKABFB ---
HPI - Skin/Abscess/Foreign Bdy General Chief complaint: General Medical Stated complaint: Rash on face and hands Time Seen by Provider: 06/22/23 15:19 Source: patient Mode of arrival: ambulatory Limitations: no limitations History of Present Illness HPI narrative: 48 yo male with history of HTN, bipolar disorder, GERD here with complaints of itching rash to face and UE after working outside and branches hitting him in the face and arms. No pain to the rash. No fevers, chills, recent travel, new medications/products/detergents or recent antibiotic use. Related Data Home Medications Medication Instructions Recorded Confirmed chlorhexidine gluconate 0.12 % ml PO 04/05/20 06/09/23 mouthwash divalproex 250 mg tablet,delayed 250 mg PO BEDTIME 05/24/21 06/09/23 release divalproex 500 mg tablet,delayed 500 mg PO BID 05/24/21 06/09/23 release Previous Rx's Medication Instructions Recorded miscellaneous medical supply #1 ea 08/22/21 (Blood Pressure Cuff) bismuth subsalicylate 262 mg/15 mL 524 mg (30 mL) PO QID PRN diarrhea 09/04/22 oral suspension ([place] Bismuth) 30 days #1,200 mL acetaminophen 500 mg capsule 1,000 mg (2 x 500 mg) PO Q6H PRN 12/05/22 fever or pain #90 caps epinephrine 0.3 mg/0.3 mL 0.3 mg (0.3 mL) IM Q10M PRN 12/05/22 injection, auto-injector (EpiPen) anaphylaxis 30 days #2 ea lisinopril 30 mg tablet 30 mg PO DAILY 90 days #90 tabs 01/07/23 pantoprazole 20 mg tablet,delayed 20 mg PO DAILY 90 days #90 tabs 05/27/23 release triamcinolone acetonide 0.5 % 1 appl topical .in the morning PRN 06/10/23 topical ointment skin irritation 30 days #15 grams diphenhydramine HCl 25 mg capsule 25 mg PO TID PRN itching #30 caps 06/22/23 (Benadryl) prednisone 20 mg tablet 60 mg (3 x 20 mg) PO DAILY #15 tabs 06/22/23 Allergies Allergy/AdvReac Type Severity Reaction Status Date / Time bee pollen [BEE STINGS] Allergy Mild SWELLING Verified 06/22/23 15:12 Review of Systems Review of Systems: Yes all other systems are reviewed and are negative Constitutional: Constitutional: Reports no additional constitutional complaints, Denies body ache(s), Denies chills, Denies fever(s), Denies headache(s) and Denies weakness Eyes: Eyes: Reports no additional eye complaints and Denies change in vision ENT: Reports system reviewed and no additional complaints, except as documented, Denies dizziness, Denies headache(s), Denies nasal congestion, Denies nasal discharge and Denies neck pain Cardiovascular: Cardiovascular: Reports no additional cardiovascular complaints, Denies chest pain, Denies leg edema and Denies dyspnea Respiratory: Respiratory: Reports no additional respiratory complaints, Denies cough and Denies dyspnea Gastrointestinal: Gastrointestinal: Reports no additional gastrointestinal complaints, Denies abdominal pain, Denies diarrhea, Denies nausea and Denies vomiting Genitourinary: Genitourinary: Denies urinary incontinence Musculoskeletal: Musculoskeletal: Reports no additional musculoskeletal complaints, Denies back pain, Denies arthralgias, Denies joint swelling, Denies neck pain, Denies numbness and Denies tingling Integumentary/Breasts: Skin/Breast: Reports system reviewed and no additional complaints, except as docu and Reports rash Neurologic: Reports system reviewed and no additional complaints, except as documented, Denies Abnormal speech present, Denies dizziness, Denies headache(s), Denies numbness, Denies tingling and Denies weakness PMFSH Past Medical History Attestation statement: The following information was validated with the patient. Source: old records reviewed and nursing notes reviewed Medical History H/O anaphylactic shock Surgical History History of open reduction and internal fixation (ORIF) procedure Family History Family History Father Diabetes CVD (cardiovascular disease) Mother No problems noted. Maternal Grandfather Myocardial infarction Social History Social History Housing: House Housing Other:: Short Living-[facility]. Alcohol intake: current Alcohol intake frequency: holidays/special occasions only Patient Tobacco Use Status: Current someday Tobacco user e-Cigarette/Vaping Use: Never Used Second Hand Smoke Exposure: No Advance Directives: No Advance Directives Information Provided: No service: No Current occupational status: employed Current occupation: [employer] Cognitive needs: No Hearing needs: No Vision needs: Yes (glasses) Physical Exam Vital Signs: Vital Signs: Last Vital Signs Temp 98 F 06/22/23 15:12 Pulse 56 06/22/23 15:12 Resp 17 06/22/23 15:12 BP 145/86 H 06/22/23 15:12 Pulse Ox 98 06/22/23 15:12 O2 Del Method Room Air 06/22/23 15:12 BMI result Body Mass Index 51.4 Const: General: cooperative, healthy appearing, comfortable and no acute distress Orientation/consciousness: patient oriented x3 Limitations: no limitations HEENT: Head: Yes normal to inspection Ears: hearing grossly normal bilaterally General nose exam: Normal external nose present Face and sinus: Yes normal facial exam Mouth: Normal oral and palatal mucosa present Throat: Yes posterior oropharynx normal Eyes: General: appearance normal, both eyes and all related structures Pupils: Equal, round and reactive pupils present Neck: Neck: Yes normal visual inspection Chest: Chest palpation & inspection: normal inspection of the chest Resp: Effort & Inspection: normal respiratory effort Auscultation: clear to auscultation bilaterally Cardio: Rate: regular rate Rhythm: regular rhythm Peripheral pulses: Peripheral pulses 2+ throughout GI: Inspection: Yes normal to inspection Palpation (GI): Soft to palpation and nontender Auscultation: normal bowel sounds Back/Spine/Pelvis: Thoracic/Lumbar Spine: thoracic and lumbar spine normal to inspection Skin: Other: maculopapular rash to the UE/face with scattered vesicles The hands/feet/oropharynx are spared. Neuro: General: patient oriented x3, no focal motor deficits and normal sensation to monofilament Cranial nerves: Yes Equal, round and reactive pupils present Cognition (Neuro): normal cognition Speech: No Abnormal speech present Gait exam (Neuro): Normal gait present Motor exam (neuro): 5/5 motor strength present throughout Extrem: General: Yes normal to inspection Medical Decision Making Medical Decision Making MDM Narrative: 48 yo male with history of HTN, bipolar disorder, GERD here with complaints of itching rash to face and UE after working outside and branches hitting him in the face and arms. No pain to the rash. No fevers, chills, recent travel, new medications/products/detergents or recent antibiotic use. Maculopapular rash to the UE/face with scattered vesicles The hands/feet/oropharynx are spared. C/w with poison debbie Differential Diagnosis Differential Diagnoses: The differential diagnosis associated with the presentation includes poison debbie low concern for sjs, ten, dress syndrome Admission/Observation Consideration of admission/observation: Escalation of care including admission/observation considered Prescription Management I considered prescription management with: Antibiotic Discharge Plan Discharge Clinical Impression: Poison debbie Patient Disposition: Home, Self-Care Instructions: Poison Debbie (ED) Prescriptions: New prednisone 20 mg tablet 60 mg PO DAILY Qty: 15 0RF diphenhydramine HCl [Benadryl] 25 mg capsule 25 mg PO TID PRN (Reason: itching) Qty: 30 0RF No Action lisinopril 30 mg tablet 30 mg PO DAILY 90 Days Qty: 90 1RF pantoprazole 20 mg tablet,delayed release (DR/EC) 20 mg PO DAILY 90 Days Qty: 90 2RF triamcinolone acetonide 0.5 % ointment 1 appl topical .in the morning PRN (Reason: skin irritation) 30 Days Qty: 15 1RF Rx Instructions: apply a quarter size thin layer to left upper arm divalproex 250 mg tablet,delayed release (DR/EC) 250 mg PO BEDTIME divalproex 500 mg tablet,delayed release (DR/EC) 500 mg PO BID chlorhexidine gluconate 0.12 % mouthwash PO bismuth subsalicylate [[place]olan Bismuth] 262 mg/15 mL suspension 524 mg PO QID PRN (Reason: diarrhea) 30 Days Qty: 1200 3RF epinephrine [EpiPen] 0.3 mg/0.3 mL auto-injector 0.3 mg IM Q10M PRN (Reason: anaphylaxis) 30 Days Qty: 2 0RF Rx Instructions: for 2 doses acetaminophen 500 mg capsule 1,000 mg PO Q6H PRN (Reason: fever or pain) Qty: 90 3RF (DME) Blood Pressure Cuff Misc See Rx Instructions .ROUTE .MEDSUPPLY Qty: 1 0RF Rx Instructions: As directed Referrals: Carl Pena PA-C [Primary Care Provider] - 1 week Interventions: ED Discharge Assessment Last Done: 06/22/23 15:22 Discharge Date/Time: 06/22/23 15:23
== END 2023-06-22 15:23 | disposition home or self-care (01) ==
PROVIDERS: Emergency Provider Student in an Organized Health Care Education/Training Program; PCP Physician Assistant
DX: L23.7 Allergic contact dermatitis due to plants, except food (principal); R21 Rash and other nonspecific skin eruption; F17.210 Nicotine dependence, cigarettes, uncomplicated
CPT/HCPCS: 99282; 99283

== ENCOUNTER 2023-07-03 09:56 | Outpatient (AMB) | payer MEDICARE, MEDICAID, SELFPAY ==
--- NOTE | 2023-07-03 09:58 | MHC.PC.OV ---
Vital Signs 07/03/23 10:00 Height 5 ft 7 in Weight 330 lb 6 oz BMI 51.7 BP 142/80 H Blood Pressure Location Lt brachial Position Sitting Pulse 66 Pulse Source Pulse Oximeter Pulse Oximetry (%) 98 Oxygen Delivery Method Room Air Intake [place] [facility] [place]poison kaitlynn House Fellow Required: No Accompanied by: Self / Same As Patient Allergies bee pollen [BEE STINGS] Allergy (Mild, Verified 07/03/23 10:21) SWELLING Medication List - Last Reconciled 07/03/23 by Carl Pena PA-C acetaminophen 1,000 mg (2 x 500 mg) PO Q6H PRN bismuth subsalicylate ([place] Bismuth) 524 mg (30 mL) PO QID PRN 30 days chlorhexidine gluconate 0.12% mL PO diphenhydramine HCl (Benadryl) 25 mg PO TID PRN divalproex 250 mg PO BEDTIME divalproex 500 mg PO BID epinephrine (EpiPen) 0.3 mg (0.3 mL) IM Q10M PRN 30 days lisinopril 30 mg PO DAILY 90 days miscellaneous medical supply (Blood Pressure Cuff) As directed pantoprazole 20 mg PO DAILY 90 days prednisone 60 mg (3 x 20 mg) PO DAILY triamcinolone acetonide 0.5% 1 appl topical .in the morning PRN 30 days Tobacco use date assessed: 06/09/23 [facility] ER follow up/poison kaitlynn HPI Details Patient is a 48-year-old male here today for an ER follow-up visit. 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 He was seen at the ER was given prednisone and Benadryl Currently doing a bit better though still has widespread rash over his abdomen and arm. His facial rash has cleared [facility] Medical History H/O anaphylactic shock Surgical History History of open reduction and internal fixation (ORIF) procedure Family History Father Diabetes CVD (cardiovascular disease) Mother No problems noted. Maternal Grandfather Myocardial infarction Social History Housing: House Housing Other:: Short Living-Intermediate. 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 Hesham Vidal, Cherelle Gusman, Lex Eckert and colleagues, with an educational andrew from [employer]. Review of Systems Const Denies headache(s) Eyes Denies loss of vision ENT Denies vertigo, Denies dizziness, Denies headache(s) and Denies sore throat Card Denies chest pain, Denies leg edema and Denies lightheadedness Resp Denies cough, Denies hemoptysis and Denies wheezing GI Denies abdominal pain, Denies melena, Denies constipation, Denies diarrhea and Denies vomiting Denies dysuria, Denies urinary frequency and Denies urinary urgency Musc Denies arthralgias, Denies joint swelling, Denies numbness and Denies tingling Neuro Denies Abnormal speech present, Denies behavioral changes, Denies vertigo, Denies dizziness, Denies headache(s), Denies loss of vision, Denies memory loss, Denies numbness and Denies tingling Psych Denies anxiety, Denies behavioral changes, Denies depression, Denies memory loss and Denies panic attacks Faizan/Lymph Denies easy bleeding and Denies easy bruising Aller/Immun Denies wheezing Physical exam (Primary Care) Vital Signs: Last Vital Signs Pulse 66 07/03/23 10:00 BP 142/80 H 07/03/23 10:00 Pulse Ox 98 07/03/23 10:00 Oxygen Delivery Method Room Air 07/03/23 10:00 BMI result Body Mass Index 51.7 Tobacco/Smoking Status: Tobacco use Status Tobacco use date assessed 06/09/23 07/03/23 09:58 Patient Tobacco Use Status Current someday Tobacco 07/03/23 09:58 e-Cigarette/Vaping Use Never Used 07/03/23 09:58 Thrive Assessment: Date of Thrive Assessment Date Thrive assessed 06/09/23 07/03/23 09:58 Const General: healthy appearing, no acute distress, alert and awake Nutritional Appearance: well nourished Orientation/consciousness: oriented to person, oriented to place and oriented to time HENMT Ears: TM's normal bilaterally General nose exam: Normal nasal mucous membranes and turbinates present Eyes Conjunctivae: conjunctivae normal Sclerae: sclerae normal Pupils: Equal, round and reactive pupils present Neck Neck: Yes no lymphadenopathy and Yes no JVD Thyroid: Thyroid normal Carotids: no bruits Resp Effort & Inspection: normal respiratory effort and not tachypneic Auscultation: no crackles, no rales, no rhonchi and no wheezes Cardio Rate: regular rate Rhythm: regular rhythm Heart sounds: no murmurs and normal S1 and S2 GI Palpation (GI): Soft to palpation, nontender, no hepatomegaly and no splenomegaly Auscultation: normal bowel sounds Skin Other: RASH NOTED OVER TORSO AND UPPER EXTREMITIES. General skin exam: dry skin Neuro General: oriented to person, oriented to place and oriented to time Cranial nerves: Yes Equal, round and reactive pupils present Speech: No Abnormal speech present Gait exam (Neuro): Normal gait present Motor exam (neuro): no tremor noted Extrem Right upper extremity: full ROM Left upper extremity: full ROM Right lower extremity: full ROM; no edema Left lower extremity: full ROM; no edema Psych Mental Status: mental status grossly normal Speech and movement: Normal speech and movement present Affect: normal affect Attitude: cooperative Thought process: Normal thought process present Assessment and Plan Assessment & Plan (1) Contact dermatitis: Code(s): L25.9 - Unspecified contact dermatitis, unspecified cause Qualifiers: Contact dermatitis type: allergic Contact dermatitis trigger: unspecified trigger Qualified Code(s): L23.9 - Allergic contact dermatitis, unspecified cause Plan: Recent contact with poison kaitlynn. Was treated with prednisone and Benadryl and symptoms have only gotten a small bit better. Will send in more extended timeframe prednisone. Will start antihistamine daily. Medications: New cetirizine 10 mg PO DAILY PRN 90 tabs 1RF allergy symptoms 90 days L23.9 - Allergic contact dermatitis, unspecified cause prednisone Take 3 tablets times 5 days, 2 tablets x4 days, 1 tablet times 3 days 10 mg PO DIRECTED 26 tabs 0RF 12 days L23.9 - Allergic contact dermatitis, unspecified cause Discontinued diphenhydramine HCl (Benadryl) Discontinued Reason: Doctor's Order 25 mg PO TID PRN 30 caps 0RF itching Coding Level of Care Code Est Pt Level 3 (35366) Diagnoses Allergic contact dermatitis, unspecified trigger L23.9 Contact dermatitis type: allergic Contact dermatitis trigger: unspecified trigger
[2023-07-03 10:00] VITALS: BP 142/80; PULSE 66; O2SAT 98; BMI 51.7
== END 2023-07-03 10:37 | disposition home or self-care (01) ==
PROVIDERS: PCP Physician Assistant; Visit Provider Physician Assistant
DX: L23.9 Allergic contact dermatitis, unspecified cause (principal)
CPT/HCPCS: 99213

== ENCOUNTER 2023-07-28 10:17 | Outpatient (REF) | payer MEDICARE, MEDICAID, SELFPAY ==
[2023-07-28 10:54] LABS: Hematocrit 41.9 % (42.0-52.0); Mean Corpuscular HGB Conc 33.4 g/dl (31.0-36.0); Mean Corpuscular Hemoglobin 28.8 pg (27.0-33.0); Mean Corpuscular Volume 86.2 fL (80.0-98.0); Mean Platelet Volume 10.1 fL (9.4-12.4); Platelet Count 216 X10*3/uL (160-400); Red Blood Count 4.86 X10*6/uL (4.60-5.80); Red Cell Distribution Width 13.5 % (11.0-16.0); White Blood Count 8.6 X10*3/uL (4.8-10.8)
[2023-07-28 11:01] LABS: Estimated Average Glucose 120 mg/dL; Hemoglobin A1c % 5.8 % (<6.0)
[2023-07-28 11:34] LABS: Valproate 76.4 mcg/mL (50.0-100.0)
[2023-07-28 12:04] LABS: Alanine Aminotransferase 26 U/L (0-40); Albumin Level 4.3 g/dL (3.5-5.0); Alkaline Phosphatase 82 U/L (39-117); Aspartate Amino Transferase 20 U/L (5-37); Bilirubin Direct 0.2 mg/dL (0.0-0.5); Bilirubin Total 0.6 mg/dL (0.0-1.0); Total Protein 7.8 g/dL (6.5-8.0)
[2023-07-28 12:11] LABS: Alanine Aminotransferase 25 U/L (0-40); Albumin Level 4.4 g/dL (3.5-5.0); Alkaline Phosphatase 83 U/L (39-117); Anion Gap 16 (12-20); Aspartate Amino Transferase 19 U/L (5-37); Bilirubin Total 0.7 mg/dL (0.0-1.0); Blood Urea Nitrogen 14 mg/dL (9-16); Calcium 9.9 mg/dL (8.4-10.2); Carbon Dioxide 24 mmol/L (22-29); Chloride 104 mmol/L (96-108); Estimated Glomerular Filt Rate > 60; Glucose Fasting 123 mg/dL (60-99); Potassium 4.2 mmol/L (3.3-5.1); Sodium 140 mmol/L (135-145); Total Protein 7.9 g/dL (6.5-8.0)
[2023-08-01 19:04] LABS: Testosterone, Free 50.1 pg/mL (35.0-155.0); Testosterone, Total 398 ng/dL (250-1100)
== END 2023-07-28 10:18 | disposition home or self-care (01) ==
LOC: HO.LAB 10:17
PROVIDERS: Absent Provider General Practice; PCP Physician Assistant; Visit Provider Physician Assistant
DX: I10 Essential (primary) hypertension (principal); F31.75 Bipolar disorder, in partial remission, most recent episode depressed; K21.9 Gastro-esophageal reflux disease without esophagitis; E66.01 Morbid (severe) obesity due to excess calories; R73.09 Other abnormal glucose; Z68.43 Body mass index [BMI] 50.0-59.9, adult; Z79.899 Other long term (current) drug therapy
CPT/HCPCS: 36415; 80053; 80076; 80164; 82248; 83036; 84402; 84403; 85027

== ENCOUNTER → 2023-08-05 09:42 | Outpatient (REF) | payer MEDICARE, MEDICAID, SELFPAY ==
--- NOTE | 2023-08-05 09:49 | ECG_ITS ---
Test Reason : htn Blood Pressure : / mmHG Vent. Rate : 078 BPM Atrial Rate : 078 BPM P-R Int : 172 ms QRS Dur : 086 ms QT Int : 334 ms P-R-T Axes : 052 039 024 degrees QTc Int : 380 ms Normal sinus rhythm Normal ECG No previous ECGs available Referred By: Carl Pena Electronically Signed By:DARINEL LUIS MD
== END ==
LOC: HO.CARD 09:42
PROVIDERS: PCP Physician Assistant; Visit Provider Physician Assistant
DX: I10 Essential (primary) hypertension (principal)
CPT/HCPCS: 93005

== ENCOUNTER → 2023-08-05 09:49 | Outpatient (BNV) | payer MEDICARE, MEDICAID, SELFPAY | PROVIDERS: PCP Physician Assistant; Visit Provider Internal Medicine Cardiovascular Disease | DX: I10 Essential (primary) hypertension (principal) | CPT/HCPCS: 93010 ==

== ENCOUNTER 2023-11-18 14:59 | Outpatient (AMB) | payer MEDICARE, MEDICAID, SELFPAY ==
--- NOTE | 2023-11-18 15:33 | A.OFFPC_ITS ---
Vital Signs 11/18/23 15:34 Height 5 ft 7 in Weight 332 lb 6 oz BMI 52.1 BP 114/66 Blood Pressure Location Lt brachial Position Sitting Pulse 72 Pulse Source Pulse Oximeter Pulse Oximetry (%) 97 Oxygen Delivery Method Room Air Intake Visit Reasons: annual exam Intake Note: Patient is here today for a physical. 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 Accompanied by: program Allergies bee pollen [BEE STINGS] Allergy (Mild, Verified 11/18/23 15:44) SWELLING Medication List - Last Reconciled 11/18/23 by Carl Pena PA-C acetaminophen 1,000 mg (2 x 500 mg) PO Q6H PRN bismuth subsalicylate ([place] Bismuth) 524 mg (30 mL) PO QID PRN 30 days cetirizine 10 mg PO DAILY PRN 90 days chlorhexidine gluconate 0.12% mL PO divalproex 250 mg PO BEDTIME divalproex 500 mg PO BID epinephrine (EpiPen) 0.3 mg (0.3 mL) IM Q10M PRN 30 days lisinopril 30 mg PO DAILY 90 days miscellaneous medical supply (Blood Pressure Cuff) As directed pantoprazole 20 mg PO DAILY 90 days triamcinolone acetonide 0.5% 1 appl topical .in the morning PRN 30 days Tobacco use date assessed: 06/09/23 Dental Screening Dental Screen Date: 06/09/23 HPI annual exam HPI Details Bryant is a 48-year-old male here today for a routine annual physical. Patient has a past medical history of GERD, bipolar 1 disorder, obesity. Concern--> would like to see funeral home associate to discuss meal planning and healthy eating habits ? . ? Bipolar: Followed by Psych, continues on divalproex and? feels well. Continues to work in [employer] now wearing long sleeves and long pants during his shifts to reduce his recurrence contact dermatitis poison kaitlynn. .. Hypertension:? Blood pressure noted to be acceptable today in office. .. Obesity:? Unfortunately gained weight since last office visit. Has been more physically active and adapting to better eating habits..? Continues to be elevated BMI and will continue working on being more physically active and at that and better eating habits to reduce his weight. Colorectal cancer screening: Considering colonoscopy Vaccines: Up-to-date with COVID tetanus, Interested in flu this fall [facility] Medical History H/O anaphylactic shock Surgical History History of open reduction and internal fixation (ORIF) procedure Family History Father Diabetes CVD (cardiovascular disease) Mother No problems noted. Maternal Grandfather Myocardial infarction Social History (Updated 11/18/23 @ 15:49 by Cral Pena PA-C) Housing: House Housing Other:: Short Living-Senior Care. 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 Hesham Vidal, Cherelle Gusman, Lex Eckert and colleagues, with an educational andrew from [employer]. Review of Systems Const Denies body aches, Denies chills, Denies excessive sweating, Denies fatigue, Denies fever(s) and Denies headache(s) Eyes Denies blurry vision ENT Denies dysphagia, Denies vertigo, Denies dizziness, Denies headache(s), Denies hearing loss and Denies tinnitus Card Denies chest pain, Denies chest pain with activity, Denies syncope, Denies irregular heart rhythm and Denies dyspnea Resp Denies chest congestion, Denies cough, Denies hemoptysis, Denies dyspnea and Denies wheezing GI Denies abdominal pain, Denies melena, Denies hematochezia, Denies coffee ground emesis, Denies dysphagia, Denies diarrhea, Denies nausea and Denies vomiting Denies difficulty urinating, Denies dysuria, Denies urinary frequency, Denies urinary hesitancy and Denies urinary urgency Musc Denies arthralgias, Denies limited range of motion, Denies muscle cramps and Denies muscle weakness Skin/Breast Denies rash and Denies skin ulcer Neuro Denies Abnormal speech present, Denies confusion, Denies vertigo, Denies dizziness, Denies syncope, Denies headache(s), Denies memory loss and Denies seizure-like activity Psych Denies anxiety, Denies confusion, Denies depression, Denies memory loss, Denies panic attacks and Denies paranoia Endo Denies excessive sweating, Denies fatigue, Denies flushing, Denies polydipsia and Denies polyuria Aller/Immun Denies wheezing Physical exam (Primary Care) Vital Signs: Last Vital Signs Pulse 72 11/18/23 15:34 BP 114/66 11/18/23 15:34 Pulse Ox 97 11/18/23 15:34 Oxygen Delivery Method Room Air 11/18/23 15:34 BMI result Body Mass Index 52.1 Tobacco/Smoking Status: Tobacco use Status Tobacco use date assessed 06/09/23 11/18/23 15:33 Patient Tobacco Use Status Current someday Tobacco 11/18/23 15:49 e-Cigarette/Vaping Use Never Used 11/18/23 15:49 Thrive Assessment: Date of Thrive Assessment Date Thrive assessed 06/09/23 11/18/23 15:33 Const General: cooperative, comfortable, no acute distress, alert and awake; No confusion Orientation/consciousness: oriented to person, oriented to place, patient oriented x3 and No confusion HENMT Head: Yes normocephalic Ears: external ears normal and TM's normal bilaterally Face and sinus: No sinus tenderness Mouth: Normal oral and palatal mucosa present and tongue normal Teeth and gingiva: dentition normal and gingiva normal Throat: Yes posterior oropharynx normal, Yes tonsils normal and Yes uvula midline Eyes Conjunctivae: conjunctivae normal Sclerae: sclerae normal Pupils: Equal, round and reactive pupils present EOM: EOMs intact bilaterally Direct Ophthalmoscopy: No no photophobia Neck Neck: Yes no lymphadenopathy, No tender and Yes no JVD Thyroid: Thyroid normal Carotids: no bruits Chest Chest palpation & inspection: no tenderness Resp Effort & Inspection: normal respiratory effort, no audible wheezes, not labored and no stridor Auscultation: no crackles, no rales, no rhonchi and no wheezes Cardio Jugular venous distension: no JVD Rate: regular rate, not bradycardic and not tachycardic Rhythm: regular rhythm Bruits: no carotid bruits Peripheral pulses: Peripheral pulses 2+ throughout GI Inspection: Yes normal to inspection, No abdominal wall ecchymosis and No visible herniation Palpation (GI): Soft to palpation, nontender, no guarding, not rigid and No hepatosplenomegaly present Auscultation: normoactive bowel sounds General: Yes no CVA tenderness Back/Spine/Pelvis Back: no CVA tenderness and No back tenderness Cervical Spine: cervical ROM normal Thoracic/Lumbar Spine: thoracic and lumbar spine normal to inspection, straight leg raise negative bilaterally, No thoraco-lumbar ROM limited and No lumbar spinal tenderness Skin Lesions: no lesions Rashes: no rashes Wounds: no wounds Neuro General: oriented to person, oriented to place, patient oriented x3, CN's II-XI intact bilaterally and No confusion Cranial nerves: Yes Equal, round and reactive pupils present and Yes Normal accommodation reflex present Cognition (Neuro): normal cognition Speech: No Abnormal speech present Gait exam (Neuro): Normal gait present Motor exam (neuro): 5/5 motor strength present throughout Extrem Right upper extremity: full ROM; no cyanosis Left upper extremity: full ROM; no cyanosis Right lower extremity: no edema Left lower extremity: no edema Psych Appearance: grossly normal Mental Status: mental status grossly normal Affect: normal affect Attitude: cooperative Thought process: Normal thought process present Assessment and Plan Assessment & Plan (1) HTN (hypertension): Code(s): I10 - Essential (primary) hypertension Qualifiers: Hypertension type: primary hypertension Qualified Code(s): I10 - Essential (primary) hypertension Plan: Patient's blood pressure acceptable today in office. Will continue him on his current dose of lisinopril. Goal blood pressures to be below 140/90 (2) Obese: Code(s): E66.9 - Obesity, unspecified Qualifiers: Body mass index: BMI 50.0-59.9 Obesity classification: adult class 3 (BMI >= 40) Obesity type: due to excess calories Serious obesity comorbidity presence: without serious comorbidity Qualified Code(s): E66.01 - Morbid (severe) obesity due to excess calories; Z68.43 - Body mass index [BMI] 50.0- 59.9, adult Plan: Patient does understand his BMI is well 50 will try to be more physically active and adapt to better eating habits to reduce his weight. (3) Impaired glucose metabolism: Code(s): R73.09 - Other abnormal glucose Plan: Most recent fasting blood sugar 111, will check an A1c to evaluate for type 2 diabetes Orders: Orders Hemoglobin A1c Today R73.09 - Other abnormal glucose Comprehensive [place]. Panel Fast Today R73.09 - Other abnormal glucose Complete Blood Count no Diff Today R73.09 - Other abnormal glucose Referrals Meeting/Event Planner Nutrition Referral E66.01 - Morbid (severe) obesity due to excess calories, R73.09 - Other abnormal glucose, Z68.43 - Body mass index [BMI] 50.0- 59.9, adult Medications: Refilled epinephrine (EpiPen) for 2 doses 0.3 mg (0.3 mL) IM Q10M 30 days PRN 2 ea 0RF anaphylaxis Z87.892 - Personal history of anaphylaxis acetaminophen 1,000 mg (2 x 500 mg) PO Q6H PRN 90 caps 3RF fever or pain M54.9 - Dorsalgia, unspecified bismuth subsalicylate ([place] Bismuth) 524 mg (30 mL) PO QID 30 days PRN 1,200 mL 3RF diarrhea K21.9 - Gastro-esophageal reflux disease without esophagitis Coding Level of Care Code Est Pt Prev Care 40-64y(25418) Diagnoses Primary hypertension I10 Hypertension type: primary hypertension Class 3 severe obesity due to excess calories without serious comorbidity with body mass index (BMI) of 50.0 to 59.9 in adult E66.01; Z68.43 Body mass index: BMI 50.0-59.9 Obesity classification: adult class 3 (BMI >= 40) Obesity type: due to excess calories Serious obesity comorbidity presence: without serious comorbidity Impaired glucose metabolism R73.09
[2023-11-18 15:34] VITALS: BP 114/66; PULSE 72; O2SAT 97; BMI 52.1
== END 2023-11-18 16:04 | disposition home or self-care (01) ==
PROVIDERS: PCP Physician Assistant; Visit Provider Physician Assistant
DX: Z00.00 Encounter for general adult medical examination without abnormal findings (principal); E66.01 Morbid (severe) obesity due to excess calories; Z68.43 Body mass index [BMI] 50.0-59.9, adult; F31.75 Bipolar disorder, in partial remission, most recent episode depressed
CPT/HCPCS: 99396

== ENCOUNTER 2024-01-28 10:28 | Outpatient (REF) | payer MEDICARE, MEDICAID, SELFPAY ==
[2024-01-28 12:09] LABS: Estimated Average Glucose 108 mg/dL; Hemoglobin A1C 137.0682 umol/L; Hemoglobin A1c % 5.4 % (<6.0); Total Hemoglobin (HGBA1C) 3868.8703 umol/L
[2024-01-28 12:12] LABS: Hematocrit 46.8 % (42.0-52.0); Hemoglobin 15.6 g/dl (14.0-18.0); Mean Corpuscular HGB Conc 33.3 g/dl (31.0-36.0); Mean Corpuscular Hemoglobin 29.9 pg (27.0-33.0); Mean Corpuscular Volume 89.7 fL (80.0-98.0); Mean Platelet Volume 11.8 fL (9.4-12.4); Platelet Count 190 X10*3/uL (160-400); Red Blood Count 5.22 X10*6/uL (4.60-5.80); Red Cell Distribution Width 13.1 % (11.0-16.0); White Blood Count 7.5 X10*3/uL (4.8-10.8)
[2024-01-28 12:45] LABS: Alanine Aminotransferase 65 U/L (0-40); Albumin Level 4.4 g/dL (3.5-5.0); Alkaline Phosphatase 77 U/L (39-117); Anion Gap 14 (12-20); Aspartate Amino Transferase 44 U/L (5-37); Bilirubin Total 0.4 mg/dL (0.0-1.0); Blood Urea Nitrogen 12 mg/dL (9-16); Calcium 9.4 mg/dL (8.4-10.2); Carbon Dioxide 23 mmol/L (22-29); Chloride 108 mmol/L (96-108); Estimated Glomerular Filt Rate > 60; Glucose Fasting 106 mg/dL (60-99); Potassium 4.4 mmol/L (3.3-5.1); Sodium 141 mmol/L (135-145); Total Protein 7.7 g/dL (6.5-8.0)
== END 2024-01-28 10:29 | disposition home or self-care (01) ==
LOC: HO.LAB 10:28
PROVIDERS: PCP Physician Assistant; Visit Provider Physician Assistant
DX: R73.09 Other abnormal glucose (principal)
CPT/HCPCS: 36415; 80053; 83036; 85027

== ENCOUNTER 2024-02-10 15:34 | Outpatient (AMB) | payer MEDICARE, MEDICAID, SELFPAY ==
--- NOTE | 2024-02-10 15:40 | MHC.PC.OV ---
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 Accompanied by: staff Allergies bee pollen [BEE STINGS] Allergy (Mild, Verified 02/10/24 15:52) SWELLING Medication List - Last Reconciled 02/10/24 by Carl Pena PA-C acetaminophen 1,000 mg (2 x 500 mg) PO Q6H PRN bismuth subsalicylate ([place] Bismuth) 524 mg (30 mL) PO QID PRN 30 days cetirizine 10 mg PO DAILY PRN 90 days chlorhexidine gluconate 0.12% mL PO divalproex 250 mg PO BEDTIME divalproex 500 mg PO BID epinephrine (EpiPen) 0.3 mg (0.3 mL) IM Q10M PRN 30 days lisinopril 30 mg PO DAILY 90 days miscellaneous medical supply (Blood Pressure Cuff) As directed pantoprazole 20 mg PO DAILY 90 days triamcinolone acetonide 0.5% 1 appl topical .in the morning PRN 30 days Tobacco use date assessed: 06/09/23 Dental Screening Dental Screen Date: 02/10/24 Did you have a dental visit in the last 12 months?: No Did you have a dental problem in the last 6 months where you did not have access to dental care?: No Was dental information given to patient?: Patient has dentist HPI 6mth f/u HPI Details Bryant is a 48-year-old male here today for a a follow-up visit. Patient has a past medical history of GERD, bipolar 1 disorder, obesity. .. Impaired: glucose metabolism: Most recent fasting blood sugar improved and A1c is reduced. ? . ? Bipolar: Followed by Psych, continues on divalproex and? feels well. Continues to work in [employer] now wearing long sleeves and long pants during his shifts to reduce his recurrence contact dermatitis poison kaitlynn. .. Hypertension:? Blood pressure noted to be acceptable today in office. Continues on lisinopril 30 mg. .. Obesity:? Has lost weight since last office visit. Has been more physically active and adapting to better eating habits..? Continues to be elevated BMI and will continue working on being more physically active and at that and better eating habits to reduce his weight. Laboratory Tests 05/29/21 10/10/22 07/28/23 09:45 09:33 10:37 RBC 4.83 Hgb Fasting Glucose 111 H 123 H Hemoglobin A1c % 5.4 5.8 Cholesterol 160 149 TSH 1.95 01/28/24 10:44 RBC Hgb 15.6 Fasting Glucose 106 H Hemoglobin A1c % 5.[address] [facility] Medical History H/O anaphylactic shock Surgical History History of open reduction and internal fixation (ORIF) procedure Family History Father Diabetes CVD (cardiovascular disease) Mother No problems noted. Maternal Grandfather Myocardial infarction Social History Housing: House Housing Other:: Short Living-Detention. Alcohol intake: current Alcohol intake frequency: holidays/special occasions only Patient Tobacco Use Status: Current someday Tobacco user e-Cigarette/Vaping Use: Never Used Second Hand Smoke Exposure: No service: No Current occupational status: employed Current occupation: [employer] Current occupational exposures/hazards: No Cognitive needs: No Hearing needs: No Vision needs: Yes (glasses) Questionnaire Thrive Questionnaire Date Thrive assessed: 06/09/23 MIRI-7 AMB Questionnaire MIRI-7 Date MIRI - 7 assessed: 06/09/23 Source: Developed by Drs. Hesham Vidal, Cherelle Gusman, Lex Eckert and colleagues, with an educational andrew from [employer]. Review of Systems Const Denies headache(s) Eyes Denies loss of vision ENT Denies vertigo, Denies dizziness, Denies headache(s) and Denies sore throat Card Denies chest pain, Denies leg edema and Denies lightheadedness Resp Denies cough, Denies hemoptysis and Denies wheezing GI Denies abdominal pain, Denies melena, Denies constipation, Denies diarrhea and Denies vomiting Denies dysuria, Denies urinary frequency and Denies urinary urgency Musc Denies arthralgias, Denies joint swelling, Denies numbness and Denies tingling Neuro Denies Abnormal speech present, Denies behavioral changes, Denies vertigo, Denies dizziness, Denies headache(s), Denies loss of vision, Denies memory loss, Denies numbness and Denies tingling Psych Denies anxiety, Denies behavioral changes, Denies depression, Denies memory loss and Denies panic attacks Faizan/Lymph Denies easy bleeding and Denies easy bruising Aller/Immun Denies wheezing Physical exam (Primary Care) Vital Signs: Last Vital Signs BP 138/84 02/10/24 15:41 BMI result Body Mass Index 50.1 Tobacco/Smoking Status: Tobacco use Status Tobacco use date assessed 06/09/23 02/10/24 15:46 Patient Tobacco Use Status Current someday Tobacco 02/10/24 15:46 e-Cigarette/Vaping Use Never Used 02/10/24 15:46 Thrive Assessment: Date of Thrive Assessment Date Thrive assessed 06/09/23 02/10/24 15:46 Const General: healthy appearing, no acute distress, alert and awake Nutritional Appearance: well nourished Orientation/consciousness: oriented to person, oriented to place and oriented to time HENMT Ears: TM's normal bilaterally General nose exam: Normal nasal mucous membranes and turbinates present Eyes Conjunctivae: conjunctivae normal Sclerae: sclerae normal Pupils: Equal, round and reactive pupils present Neck Neck: Yes no lymphadenopathy and Yes no JVD Thyroid: Thyroid normal Carotids: no bruits Resp Effort & Inspection: normal respiratory effort and not tachypneic Auscultation: no crackles, no rales, no rhonchi and no wheezes Cardio Rate: regular rate Rhythm: regular rhythm Heart sounds: no murmurs and normal S1 and S2 GI Palpation (GI): Soft to palpation, nontender, no hepatomegaly and no splenomegaly Auscultation: normal bowel sounds Skin General skin exam: no rashes or lesions noted and dry skin Neuro General: oriented to person, oriented to place and oriented to time Cranial nerves: Yes Equal, round and reactive pupils present Speech: No Abnormal speech present Gait exam (Neuro): Normal gait present Motor exam (neuro): no tremor noted Extrem Right upper extremity: full ROM Left upper extremity: full ROM Right lower extremity: full ROM; no edema Left lower extremity: full ROM; no edema Psych Mental Status: mental status grossly normal Speech and movement: Normal speech and movement present Affect: normal affect Attitude: cooperative Thought process: Normal thought process present Coding Level of Care Code Est Pt Level 4 (70214) Diagnoses Primary hypertension I10 Hypertension type: primary hypertension Class 3 obesity E66.813 Bipolar disorder, in partial remission, most recent episode depressed F31.75 Active/Remission status: in partial remission Most recent bipolar episode type: depressed Impaired glucose metabolism R73.09 Assessment & Plan Assessment & Plan (1) HTN (hypertension): Code(s): I10 - Essential (primary) hypertension Category: Medical Qualifiers: Hypertension type: primary hypertension Qualified Code(s): I10 - Essential (primary) hypertension Plan: Patient's blood pressure acceptable today in office. He continues to manage his blood pressure with lisinopril 30 mg. Has lost weight since last office visit. Goal blood pressures to remain below 130/90 (2) Class 3 obesity: Code(s): E66.813 - Obesity, class 3 Category: Medical Plan: Patient does understand his BMI is over 50 will continue working on being more physically active and adapting to better eating habits to reduce his weight. (3) Bipolar disorder: Code(s): F31.9 - Bipolar disorder, unspecified Category: Medical Qualifiers: Active/Remission status: in partial remission Most recent bipolar episode type: depressed Qualified Code(s): F31.75 - Bipolar disorder, in partial remission, most recent episode depressed Plan: Patient reports his mood is fairly stable. Continues to follow a psychiatrist whom manages mood stabilization (4) Impaired glucose metabolism: Code(s): R73.09 - Other abnormal glucose Category: Medical Plan: Patient's most recent fasting blood sugar much improved. A1c now acceptable. Will continue to work on lifestyle modifications Orders: Orders Comprehensive [place]. Panel Fast 6 Months R73.09 - Other abnormal glucose Hemoglobin A1c 6 Months R73.09 - Other abnormal glucose Microalbumin, Random (w Creat) 6 Months R73.09 - Other abnormal glucose Complete Blood Count no Diff 6 Months I10 - Essential (primary) hypertension Medications: Refilled triamcinolone acetonide 0.5% apply a quarter size thin layer to left upper arm 1 appl topical .in the morning PRN 15 grams 1RF skin irritation 30 days L30.9 - Dermatitis, unspecified Patient Instructions: Goal: Blood pressure to remain below 140/90 Barriers: Adherence to physical activity and healthy eating habits
[2024-02-10 15:41] VITALS: BP 138/84; BMI 50.1
== END 2024-02-10 16:10 | disposition home or self-care (01) ==
LOC: HO.HMCH 15:35
PROVIDERS: PCP Physician Assistant; Visit Provider Physician Assistant
DX: I10 Essential (primary) hypertension (principal); F31.75 Bipolar disorder, in partial remission, most recent episode depressed; E66.813 Obesity, class 3; Z68.43 Body mass index [BMI] 50.0-59.9, adult; R73.09 Other abnormal glucose

== ENCOUNTER → 2024-02-10 15:34 | Outpatient (BNVA) | payer MEDICARE, MEDICAID, SELFPAY | PROVIDERS: PCP Physician Assistant; Visit Provider Physician Assistant | DX: I10 Essential (primary) hypertension (principal); E66.813 Obesity, class 3; F31.72 Bipolar disorder, in full remission, most recent episode hypomanic; R73.09 Other abnormal glucose | CPT/HCPCS: 99212 ==

== ENCOUNTER 2024-05-24 10:25 | Outpatient (REF) | payer MEDICARE, MEDICAID, SELFPAY ==
--- OUTSIDE RECORDS SUMMARY | 2024-05-24 11:21 | XMS_ITS | Data Portability ---
Author Organization BLADIMIR Copeland [facility] [address] Address [address] [place] [address] Assessment No assessment recorded. Plan of Treatment Reminders Order Date Submit Date Provider Last Modified By Organization Details Last Modified Time Details Appointments None recorded. Lab None recorded. Referral None recorded. Procedures None recorded. Surgeries None recorded. Imaging None recorded. Medication Orders Medrol (Rolf) 4 mg tablets in a dose pack 023 023 [facility] [place], [address], 11:10:53 Patient TargetsNo targets recorded. Patient Instructions Encounter Date Encounter Id Patient Instructions Last Modified By Organization Details Last Modified Time 11/05/2022 [id number] poison kaitlynn, oak, and sumac: care instructions [email or web address] Not available 11/05/2022 11:08:59 Reason for Referral None Reported. Problems Name Problem SNOMED Code Status Onset Date Resolution Date Notes Provider Name and Address Organization Details Recorded Time Hypertensive disorder 61165455 Active 2022 GABO bruner PA Rahul [facility] 3 10:41:42 Gastroesophage al reflux disease 013895416 Active 2022 GABO bruner PA Rahul [facility] 3 10:41:49 Problem Notes None recorded. Procedures Surgical History Date Name Laterality Status Provider Name and Address Organization Details Recorded Time 11/06/19 Fluorescein Eye Exam completed Cori Brooks MD [address] [place], [place] [address], [address], BLADIMIR Kay [facility] 11/05/2022 16:43:03 procedure on hip completed GABO Kay [facility] 11/05/2022 10:42:34 Imaging Results None recorded. Procedure Notes None recorded. Medical Equipment None Reported. Allergies No known drug allergies Medications Name Sig Start Date Stop Date Status Note LastModified by Organization Details LastModified Time Medrol (Rolf) 4 mg tablets in a dose pack Take 1 dose pk by oral route as directe d. 023 active Not Available Not Available Not Avai lable chlorhexidine gluconate (bulk) 20 % solution active Not Available Not Available Not Available EpiPen active Not Available Not Availa ble Not Available Depakote active Not Available Not Avai lable Not Available PreviDent active Not Available Not Mary Ann ilable Not Available lisinopril active Not Available Not Av ailable Not Available Tylenol active Not Available Not Avail able Not Available pantoprazole active Not Available Not Available Not Available Vitals Date Recorded Body height Body mass index (BMI) Body weight Oxygen saturation Oxygen saturation in Arterial blood by Pulse oximetry Heart rate Respiratory rate Body temperature Systolic blood pressure Diastolic blood pressure Provider Name and Address Organization Details Last Updated DateTime 3 170.18 cm 53.3 kg/m2 137396. 41 g 100 % 100 % 63 /min 18 /min 98.1 [degF] 124 mm[Hg] 76 mm[Hg] GABO GARRISON [employer] [facility] 10:45:38 Social History Question Answer Notes LastModified by Organizat ion Details LastModified Time Tobacco Smoking Status Never Smoker GABO bruner [facility] 11/05/2022 10:42:10 What Is Your Level Of Alcohol Consumption? None Information not available 11/05/2022 Have You Had Direct Contact, Or Contact During Intimacy, With Monkeypox Rash, Scabs, Or Body Fluids From A Person With Monkeypox? No Information not available 11/05/2022 Do You Use Any Illicit Or Recreational Drugs? No Information not available 11/05/2022 Have You Recently Traveled Abroad? No Information not available 11/05/2022 Are You Currently In School? No Information not available 11/05/2022 Do You Or Have You Ever Used Any Other Forms Of Tobacco Or Nicotine? No Information not available 11/05/2022 Sex: Unknown Functional Status None recorded. Mental Status None recorded. Family History Relationship Description Onset Age of this Age Resolved Age Notes LastModified by Organization Details LastModified Time Father No current problems or disability Not available 10/13 10:41:54 Mother No current problems or disability Not available 10/13 10:41:54 Medical History No medical history recorded. Immunizations Vaccine Type Date Status Note Provider Nam e and Address Organization Details Recorded Time Influenza, split virus, quadrivalent, preservative 9 completed GABO JACKSON null, [place] - [facility] 11/05/2022 10:40:12 Influenza, split virus, quadrivalent, preservative 6 completed GABO JACKSON null, PA - [facility] 11/05/2022 10:40:12 COVID-19, mRNA, LNP-S, PF, 100 mcg/0.5mL dose or 50 mcg/0.25mL dose 1 completed GABO GALANND null, PA - [facility] 11/05/2022 10:40:12 COVID-19, mRNA, LNP-S, PF, 100 mcg/0.5mL dose or 50 mcg/0.25mL dose 1 completed GABO JACKSON null, PA - [facility] 11/05/2022 10:40:12 Tdap 2 completed GABO JACKSON null, PA - [facility] 11/05/2022 10:40:12 Influenza, split virus, trivalent, preservative 5 completed GABO JACKSON null, PA - [facility] 11/05/2022 10:40:12 Td (adult), 2 Lf tetanus toxoid, preservative free, adsorbed 0 completed GABO JACKSON null, PA - [facility] 11/05/2022 10:40:12 Influenza, split virus, quadrivalent, PF 8 completed GABO JACKSON null, PA - [facility] 11/05/2022 10:40:12 Influenza, split virus, quadrivalent, PF 2 completed GABO JACKSON null, PA - [facility] 11/05/2022 10:40:12 Influenza, split virus, quadrivalent, PF 1 completed GABO JACKSON null, PA - [facility] 11/05/2022 10:40:12 Influenza, split virus, quadrivalent, PF 0 completed GABO JACKSON null, PA - [facility] 11/05/2022 10:40:12 Past Encounters Encounter ID Performer Location Encounter Start Date Encounter Closed Date Diagnosis/Indication Diagnosis SNOMED-CT Code Diagnosis ICD10 Code [facility] [id number] [facility] [address] [place] [address] 12/20/2019 19:15:16 12/20/2019 19:34:25 [id number] [address] [address] 10/19/2019 16:18:28 10/19/2019 17:04:01 [id number] [facility] [address] [place] [id number] 11/05/2022 10:25:46 11/05/2022 11:20:25 Contact dermatitis caused by plants 053289885 L25.5 Please follow up with PCP or Urgent Care in 3-5 days if no improvemen t or if any new symptoms occur that are concerning .Call 911 or go to nearest ER if you develop any shortness of breath, chest pain, severe headache, dizziness, or other concerning symptoms Health Concerns Section Related Observation LastModified by Organization Detai ls LastModified Time None Recorded Concern Status LastModified by Organization Details LastModified Time None Recorded Advance Directives Directive None Recorded Payers Encounter Date Sequence Insurance Name Policy Number Policy Peng Covered Member ID Peng Member ID Guarantor Name 12/20/2019 1 [place] [employer] Johnathan Wilson [id number] Johnathan Wilson 12/20/2019 2 [place] [facility] Johnathan Wilson [id number] Johnathan Wilson 11/05/2022 1 [place] [employer] Johnathan Wilson [id number] Johnathan Wilson 11/05/2022 2 [place] [facility] Johnathan Wilson [id number] Johnathan Wilson
--- OUTSIDE RECORDS SUMMARY | 2024-05-24 11:21 | XMS_ITS | Clinical Summary ---
Author Organization [facility] Address [address] [place] [address] Care Team Providers Care Financial Representative Name Role Phone Unavailable Primary Care Provider Unavailabl e Social History Tobacco Use Types Packs/Day Years Used Date Smoking Tobacco: Never Assessed Sex and Gender Information Value Date Recorded Sex Assigned at Not on file Legal Sex Male 10:47 AM EST Gender Identity Not on file Sexual Orientation Not on file Plan of Treatment Health Maintenance Due Date Last Done Comments DTaP,Tdap,and Td Vaccines (1 - Tdap) 1983 Hepatitis B Vaccines (1 of 3 - 19+ 3-dose series) 1995 COVID-19 Vaccine (2023-2 5 season) 2023 Influenza Vaccine (#1) 2023 HIB Vaccines Aged Out No longer eligi ble based on patient's age to complete this topic HPV Vaccines Aged Out No longer eligi ble based on patient's age to complete this topic Hepatitis A Vaccines Aged Out No long er eligible based on patient's age to complete this topic IPV Vaccines Aged Out No longer eligi ble based on patient's age to complete this topic MMR Vaccines Aged Out No longer eligi ble based on patient's age to complete this topic Meningococcal ACWY Vaccine Aged Out N o longer eligible based on patient's age to complete this topic Meningococcal B Vacine Aged Out No lo nger eligible based on patient's age to complete this topic Pneumococcal Vaccine: Pediat rics (0 to 5 Years) and At-Risk Patients (6 to 64 Years) Aged Out No longer eligible b ased on patient's age to complete this topic RSV Immunization Patients Un abhi 20 months Aged Out No longer eligible b ased on patient's age to complete this topic Varicella Vaccines Aged Out No longer eligible based on patient's age to complete this topic
[2024-05-24 11:40] LABS: Hemoglobin 15.1 g/dl (14.0-18.0); Mean Corpuscular HGB Conc 33.6 g/dl (31.0-36.0); Mean Corpuscular Hemoglobin 30.1 pg (27.0-33.0); Mean Corpuscular Volume 89.8 fL (80.0-98.0); Mean Platelet Volume 11.4 fL (9.4-12.4); Platelet Count 198 X10*3/uL (160-400); Red Blood Count 5.01 X10*6/uL (4.60-5.80); Red Cell Distribution Width 12.6 % (11.0-16.0); White Blood Count 8.9 X10*3/uL (4.8-10.8)
[2024-05-24 11:44] LABS: Estimated Average Glucose 105 mg/dL; Hemoglobin A1C 133.8116 umol/L; Hemoglobin A1c % 5.3 % (<6.0); Total Hemoglobin (HGBA1C) 3900.0011 umol/L
[2024-05-24 12:08] LABS: Alanine Aminotransferase 44 U/L (0-40); Albumin Level 4.2 g/dL (3.5-5.0); Alkaline Phosphatase 71 U/L (39-117); Anion Gap 12 (12-20); Aspartate Amino Transferase 33 U/L (5-37); Bilirubin Total 0.4 mg/dL (0.0-1.0); Blood Urea Nitrogen 17 mg/dL (9-16); Carbon Dioxide 25 mmol/L (22-29); Chloride 108 mmol/L (96-108); Estimated Glomerular Filt Rate > 60; Glucose Fasting 95 mg/dL (60-99); Sodium 141 mmol/L (135-145); Total Protein 7.7 g/dL (6.5-8.0)
== END 2024-05-24 10:26 | disposition home or self-care (01) ==
LOC: HO.LAB 10:25
PROVIDERS: PCP Physician Assistant; Visit Provider Physician Assistant
DX: I10 Essential (primary) hypertension (principal); R73.09 Other abnormal glucose
CPT/HCPCS: 36415; 80053; 83036; 85027

== ENCOUNTER 2024-07-14 09:47 | Outpatient (REF) | payer MEDICARE, MEDICAID, SELFPAY ==
--- OUTSIDE RECORDS SUMMARY | 2024-07-14 11:09 | XMS_ITS | Clinical Summary ---
Author Organization [facility] Address [address] [place] [address] Care Team Providers Care Catalyst Operator Name Role Phone Unavailable Primary Care Provider [...] Comments DTaP,Tdap,and Td Vaccines (1 - Tdap) 1995 Hepatitis B Vaccines (1 of 3 - [...]
--- OUTSIDE RECORDS SUMMARY | 2024-07-14 11:09 | XMS_ITS | Data Portability ---
Author Organization BLAD[facility]IR Copeland [address] Address [address] [place] [address] Assessment No assessment recorded. Plan of Treatment Reminders Order Date Submit Date Provider Last Modified By Organization Details Last Modified Time Details Appointments None recorded. Lab None recorded. Referral None recorded. Procedures None recorded. Surgeries None recorded. Imaging None recorded. Medication Orders Medrol (Rolf) 4 mg tablets in a dose pack 023 023 [facility] [place], [address], 11:10:53 Patient TargetsNo targets recorded. Patient Instructions Encounter Date Encounter Id Patient Instructions Last Modified By Organization Details Last Modified Time 11/05/2022 [id number] poison kaitlynn, oak, and sumac: care instructions [email or web address] Not available 11/05/2022 11:08:59 Reason for Referral None Reported. Problems Name Problem SNOMED Code Status Onset Date Resolution Date Notes Provider Name and Address Organization Details Recorded Time Hypertensive disorder 15860371 Active 2022 GABO bruner PA Rahul [facility] 3 10:41:42 Gastroesophage al reflux disease 669651189 Active 2022 GABO bruner PA Rahul [facility] 3 10:41:49 Problem Notes None recorded. Procedures Surgical History Date Name Laterality Status Provider Name and Address Organization Details Recorded Time 11/06/19 Fluorescein Eye Exam completed Cori Brooks MD [address] [place], [place] [address], [address], BLADIMIR Kay [facility] 11/05/2022 16:43:03 procedure [...] Updated DateTime 3 170.18 cm 53.3 kg/m2 258686. 41 g 100 % 100 % 63 /min 18 /min 98.1 [degF] 124 mm[Hg] 76 mm[Hg] GABO GARRISON [facility] [facility] 10:45:38 Social History Question Answer Notes LastModified by Organizat ion Details LastModified Time Tobacco Smoking Status Never Smoker GABO bruner [facility] 11/05/2022 10:42:10 What Is Your [...] SNOMED-CT Code Diagnosis ICD10 Code Diagnosis Note [id number] [facility] [address] [place] [id number] 12/20/2019 19:15:16 12/20/2019 19:34:25 [id number] [address] [address] 10/19/2019 16:18:28 10/19/2019 17:04:01 [id number] Cori Brooks [facility] [address] [place] [phone] 11/05/2022 10:25:46 11/05/2022 11:20:25 Contact dermatitis caused by plants [id number] L25.5 Please follow up with PCP or [...] ID Guarantor Name 12/20/2019 1 [place] [employer] Johnathan Wilson [id number] Johnathan Wilson 12/20/2019 2 [place] [facility] Johnathan Wilson [id number] Johnathan Wilson 11/05/2022 1 [place] [employer] Johnathan Wilson [id number] Johnathan Wilson 11/05/2022 2 [place] [facility] Johnathan Wilson [id number] Johnathan Wilson
[2024-07-14 11:38] LABS: Valproate 80.1 mcg/mL (50.0-100.0)
[2024-07-14 12:04] LABS: Alanine Aminotransferase 32 U/L (0-40); Albumin Level 4.3 g/dL (3.5-5.0); Alkaline Phosphatase 72 U/L (39-117); Aspartate Amino Transferase 28 U/L (5-37); Bilirubin Direct 0.2 mg/dL (0.0-0.5); Bilirubin Total 0.5 mg/dL (0.0-1.0); Total Protein 7.6 g/dL (6.5-8.0)
== END 2024-07-14 09:48 | disposition home or self-care (01) ==
LOC: HO.LAB 09:47
PROVIDERS: PCP Internal Medicine; Visit Provider General Practice
DX: Z79.899 Other long term (current) drug therapy (principal)
CPT/HCPCS: 36415; 80076; 80164

== ENCOUNTER 2024-09-22 13:55 | Outpatient (AMB) | payer MEDICARE, MEDICAID, SELFPAY ==
--- NOTE | 2024-09-22 13:59 | A.OFFPC_ITS ---
Vital Signs 09/22/24 14:16 Height 5 ft 7 in Weight 323 lb BMI 50.6 BP 118/60 Blood Pressure Location Lt brachial Position Sitting Pulse 65 Pulse Source Pulse Oximeter Temp 97.1 F Temp Source Temporal Artery Scan Pulse Oximetry (%) 97 Oxygen Delivery Method Room Air Intake Visit Reasons: Follow-up hypertension Hairspring Inspector Required: No Accompanied by: program Allergies bee pollen [BEE STINGS] Allergy (Mild, Verified 09/22/24 14:17) SWELLING Medication List - Last Reconciled 09/22/24 by Carl Pena PA-C acetaminophen 1,000 mg (2 x 500 mg) PO Q6H PRN bismuth subsalicylate ([place] Bismuth) 524 mg (30 mL) PO QID PRN 30 days cetirizine 10 mg PO DAILY PRN 90 days chlorhexidine gluconate 0.12% mL PO divalproex 250 mg PO BEDTIME divalproex 500 mg PO BID epinephrine (EpiPen) 0.3 mg (0.3 mL) IM Q10M PRN 30 days lisinopril 30 mg PO DAILY 90 days miscellaneous medical supply (Blood Pressure Cuff) As directed pantoprazole 20 mg PO DAILY 90 days triamcinolone acetonide 0.5% 1 appl topical .in the morning PRN 30 days Tobacco use date assessed: 09/22/24 Dental Screening Dental Screen Date: 09/22/24 Did you have a dental visit in the last 12 months?: Yes Did you have a dental problem in the last 6 months where you did not have access to dental care?: No Was dental information given to patient?: Patient has dentist HPI Follow-up hypertension HPI Details Bryant is a 49-year-old male here today for a a follow-up visit. Patient has a past medical history of GERD, bipolar 1 disorder, obesity. .. Impaired: glucose metabolism: Most recent fasting blood sugar improved and A1c is reduced. ? . ? Bipolar: Followed by Psych, continues on divalproex and? feels well. Continues to work in [employer] now wearing long sleeves and long pants during his shifts to reduce his recurrence contact dermatitis poison kaitlynn. .. Hypertension:? Blood pressure noted to be acceptable today in office. Continues on lisinopril 30 mg. .. Class 3 Obesity:? He has gained a small amount of weight since last office visit. 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 Has been more physically active and adapting to better eating habits..? Continues to be elevated BMI and will continue working on being more physically active and at that and better eating habits to reduce his weight. [facility] Medical History H/O anaphylactic shock Surgical History History of open reduction and internal fixation (ORIF) procedure Family History Father Diabetes CVD (cardiovascular disease) Mother No problems noted. Maternal Grandfather Myocardial infarction Social History Housing: House Housing Other:: Short Living-Residential. Alcohol intake: current Alcohol intake frequency: holidays/special occasions only Patient Tobacco Use Status: Current someday Tobacco user e-Cigarette/Vaping Use: Never Used Second Hand Smoke Exposure: No service: No Current occupational status: employed Current occupation: [employer] Current occupational exposures/hazards: No Cognitive needs: No Hearing needs: No Vision needs: Yes (glasses) Questionnaire PHQ-9 Over the last 2 weeks, how often have you been bothered by any of the following problems? 1. Little interest or pleasure in doing things: not at all 2. Feeling down, depressed, or hopeless: not at all 3. Trouble falling or staying asleep, or sleeping too much: not at all 4. Feeling tired or having little energy: not at all 5. Poor appetite or overeating: not at all 6. Feeling bad about yourself - or that you are a failure or have let yourself or your family down: not at all 7. Trouble concentrating on things, such as reading the newspaper or watching television: not at all 8. Moving or speaking so slowly that other people could have noticed. Or the opposite - being so fidgety or restless that you have been moving around a lot more than usual: not at all 9. Thoughts that you would be better off or of hurting yourself in some way: not at all Total score: 0 Depression Screening Interpretation: Negative Depression Screening Done: Yes 67976 - PHQ-9 Billing: Yes Source: Developed by Drs. Hesham Vidal, Cherelle Gusman, Lex Eckert and colleagues, with an educational andrew from [employer]. Thrive Questionnaire Date Thrive assessed: 09/22/24 I am a: Patient What is your living situation today?: I have a steady place to live Within the past 12 months, did the food you bought not last and you didn't have the money to get more?: Sometimes True Within the past 12 months, did you worry whether your food would run out before you got money to buy more?: Sometimes True Do you have trouble paying for medicines?: No Do you have trouble getting transportation to medical appointments?: No Do you have trouble paying your heating and electricity bill?: No Do you have trouble taking care of your child, family member or friend?: No Do you have trouble with day-to-day activities such as bathing, preparing meals, shopping, managing finances, etc.?: No Are you currently unemployed and looking for a job?: No Are you interested in more education?: No Please select the resources that you would like help with: None Currently or been in a relationship where the following occur: No concerns reported THRIVE Score: 2 AUDIT C Alcohol Use Questionnaire (AUDIT-C) 1. How often do you have a drink containing alcohol?: Never 3. How often do you have six or more drinks on one occasion?: Never Total Score: 0 MIRI-7 AMB Questionnaire MIRI-7 Date MIRI - 7 assessed: 09/22/24 Feeling nervous, anxious, or on edge: 0 = Not at all Not being able to stop or control worryin = Not at all Worrying too much about different things: 0 = Not at all Trouble relaxin = Not at all Being so restless that it is hard to sit still: 0 = Not at all Becoming easily annoyed or irritable: 0 = Not at all Feeling afraid as if something awful might happen: 0 = Not at all Total MIRI-7 score (0-4 normal; 5-9 mild; 10-14 moderate; 15-21 severe): 0 Source: Developed by Cherelle Pulido, Lex Eckert and colleagues, with an educational andrew from [employer]. MIRI-7 Assessment Billing MIRI-7 Assessment Tool: MIRI-7 Assessment 89824 Review of Systems Const Denies headache(s) Eyes Denies loss of vision ENT Denies vertigo, Denies dizziness, Denies headache(s) and Denies sore throat Card Denies chest pain, Denies leg edema and Denies lightheadedness Resp Denies cough, Denies hemoptysis and Denies wheezing GI Denies abdominal pain, Denies melena, Denies constipation, Denies diarrhea and Denies vomiting Denies dysuria, Denies urinary frequency and Denies urinary urgency Musc Denies arthralgias, Denies joint swelling, Denies numbness and Denies tingling Neuro Denies Abnormal speech present, Denies behavioral changes, Denies vertigo, Denies dizziness, Denies headache(s), Denies loss of vision, Denies memory loss, Denies numbness and Denies tingling Psych Denies anxiety, Denies behavioral changes, Denies depression, Denies memory loss and Denies panic attacks Faizan/Lymph Denies easy bleeding and Denies easy bruising Aller/Immun Denies wheezing Physical exam (Primary Care) Vital Signs: Last Vital Signs Temp 97.1 F 09/22/24 14:16 Pulse 65 09/22/24 14:16 BP 118/60 09/22/24 14:16 Pulse Ox 97 09/22/24 14:16 Oxygen Delivery Method Room Air 09/22/24 14:16 BMI result Body Mass Index 50.6 BMI Assessment/Plan discussion: High BMI High, discussed plan: lifestyle, weight reduction, dietary and physical activity Tobacco/Smoking Status: Tobacco use Status Tobacco use date assessed 09/22/24 09/22/24 14:17 Patient Tobacco Use Status Current someday Tobacco 09/22/24 13:59 e-Cigarette/Vaping Use Never Used 09/22/24 13:59 PHQ-9: PHQ-9 Score PHQ-9: Total score 0 09/22/24 14:02 Depression Screening Interpretation: Negative Thrive Assessment: Date of Thrive Assessment Date Thrive assessed 09/22/24 09/22/24 14:02 Currently or been in a relationship where the following occur: No concerns reported Const General: healthy appearing, no acute distress, alert and awake Nutritional Appearance: well nourished Orientation/consciousness: oriented to person, oriented to place and oriented to time HENMT Ears: TM's normal bilaterally General nose exam: Normal nasal mucous membranes and turbinates present Eyes Conjunctivae: conjunctivae normal Sclerae: sclerae normal Pupils: Equal, round and reactive pupils present Neck Neck: Yes no lymphadenopathy and Yes no JVD Thyroid: Thyroid normal Carotids: no bruits Resp Effort & Inspection: normal respiratory effort and not tachypneic Auscultation: no crackles, no rales, no rhonchi and no wheezes Cardio Rate: regular rate Rhythm: regular rhythm Heart sounds: no murmurs and normal S1 and S2 GI Palpation (GI): Soft to palpation, nontender, no hepatomegaly and no splenomegaly Auscultation: normal bowel sounds Skin General skin exam: no rashes or lesions noted and dry skin Neuro General: oriented to person, oriented to place and oriented to time Cranial nerves: Yes Equal, round and reactive pupils present Speech: No Abnormal speech present Gait exam (Neuro): Normal gait present Motor exam (neuro): no tremor noted Extrem Right upper extremity: full ROM Left upper extremity: full ROM Right lower extremity: full ROM; no edema Left lower extremity: full ROM; no edema Psych Mental Status: mental status grossly normal Speech and movement: Normal speech and movement present Affect: normal affect Attitude: cooperative Thought process: Normal thought process present Coding Level of Care Code Est Pt Level 3 (00791) Diagnoses Primary hypertension I10 Hypertension type: primary hypertension Class 3 obesity E66.813 Bipolar disorder, in partial remission, most recent episode depressed F31.75 Active/Remission status: in partial remission Most recent bipolar episode type: depressed Impaired glucose metabolism R73.09 Additional Codes MIRI-7 Assessment Billing - MIRI-7 Assessment Tool: MIRI-7 Assessment 29626 ([id number]) PHQ-9 - 03158 - PHQ-9 Billing: Yes ([id number]) Assessment & Plan Assessment & Plan (1) HTN (hypertension): Code(s): I10 - Essential (primary) hypertension Category: Medical Qualifiers: Hypertension type: primary hypertension Qualified Code(s): I10 - Essential (primary) hypertension Plan: Patient's blood pressure acceptable today in office. He continues to manage his blood pressure with lisinopril 30 mg. Has lost weight since last office visit. Goal blood pressures to remain below 130/90 (2) Class 3 obesity: Code(s): E66.813 - Obesity, class 3 Category: Medical Plan: Patient does understand his BMI is over 50 will continue working on being more physically active and adapting to better eating habits to reduce his weight. (3) Bipolar disorder: Code(s): F31.9 - Bipolar disorder, unspecified Category: Medical Qualifiers: Active/Remission status: in partial remission Most recent bipolar episode type: depressed Qualified Code(s): F31.75 - Bipolar disorder, in partial remission, most recent episode depressed Plan: Patient reports his mood is fairly stable. Continues to follow a psychiatrist whom manages mood stabilization (4) Impaired glucose metabolism: Code(s): R73.09 - Other abnormal glucose Category: Medical Plan: Patient's most recent fasting blood sugar much improved. A1c now acceptable. Will continue to work on lifestyle modifications Orders: Orders Hemoglobin A1c Today R73.09 - Other abnormal glucose Microalbumin, Random (w Creat) Today I10 - Essential (primary) hypertension Comprehensive [place]. Panel Fast Today R73.09 - Other abnormal glucose Complete Blood Count no Diff Today I10 - Essential (primary) hypertension
[2024-09-22 14:16] VITALS: BP 118/60; PULSE 65; TEMP 36.2; O2SAT 97; BMI 50.6
--- OUTSIDE RECORDS SUMMARY | 2024-09-22 15:53 | XMS_ITS | Data Portability ---
Author Organization BLADIM[facility] [address] Address [address] [place] [address] Assessment No assessment recorded. Plan of Treatment Reminders Order Date Submit Date Provider Last Modified By Organization Details Last Modified Time Details Appointments None recorded. Lab None recorded. Referral None recorded. Procedures None recorded. Surgeries None recorded. Imaging None recorded. Medication Orders Medrol (Rolf) 4 mg tablets in a dose pack 023 023 [facility] [place], [address], 11:10:53 Patient TargetsNo targets recorded. Patient Instructions Encounter Date Encounter Id Patient Instructions Last Modified By Organization Details Last Modified Time 11/05/2022 [id number] poison kaitlynn, oak, and sumac: care instructions skealy2 Not available 11/05/2022 11:08:59 Reason for Referral None Reported. Problems Name Problem SNOMED Code Status Onset Date Resolution Date Notes Provider Name and Address Organization Details Recorded Time Hypertensive disorder 87862687 Active 2022 GABO bruner PA Rahul [facility] 3 10:41:42 Gastroesophage al reflux disease 878522107 Active 2022 GABO bruner PA Rahul [facility] 3 10:41:49 Problem Notes None recorded. Procedures Surgical History Date Name Laterality Status Provider Name and Address Organization Details Recorded Time 11/06/19 Fluorescein Eye Exam completed Cori Brooks MD [address] [place], [place] [address], [address], BLADIMIR Kay [facility] 11/05/2022 16:43:03 procedure [...] Updated DateTime 3 170.18 cm 53.3 kg/m2 880234. 41 g 100 % 100 % 63 /min 18 /min 98.1 [degF] 124 mm[Hg] 76 mm[Hg] [facility]ABO GARRISON [facility] 10:45:38 Social History Question Answer Notes LastModified by [employer] Details LastModified Time Tobacco Smoking Status Never Smoker GABO bruner [place] [facility] 11/05/2022 10:42:10 Have You Had Direct Contact, Or Contact During Intimacy, With Monkeypox Rash, Scabs, Or Body Fluids From A Person With Monkeypox? No Information not available 11/05/2022 Have You Recently Traveled Abroad? No Information not available 11/05/2022 Are You Currently In School? No Information not available 11/05/2022 Sex: Unknown Functional Status Question Answer Note LastModified by [employer] Details LastModified Time Do you use any illicit or recreational drugs? No Information not available 11/05/2022 Do you or have you ever used any other forms of tobacco or nicotine? No Information not available 11/05/2022 What is your level of alcohol consumption? None Information not available 11/05/2022 Mental Status None recorded. Family History Relationship [...] split virus, quadrivalent, preservative 9 completed GABO GALANND null, PA - [facility] 11/05/2022 10:40:12 Influenza, split virus, quadrivalent, preservative 6 completed GABO GALANND null, [place] - [facility] 11/05/2022 10:40:12 COVID-19, mRNA, LNP-S, PF, 100 mcg/0.5mL dose or 50 mcg/0.25mL dose 1 completed GABO LLOYDHIND null, PA - [facility] 11/05/2022 10:40:12 COVID-19, mRNA, LNP-S, PF, 100 mcg/0.5mL dose or 50 mcg/0.25mL dose 1 completed GABO JACKSON null, PA - [facility] 11/05/2022 10:40:12 Tdap 2 completed GABO GALANND null, PA - [facility] 11/05/2022 10:40:12 Influenza, split virus, trivalent, preservative 5 completed GABO LLOYDHIND null, PA - [facility] 11/05/2022 10:40:12 Td (adult), 2 Lf tetanus toxoid, preservative free, adsorbed 0 completed GABO GALANND null, PA - [facility] 11/05/2022 10:40:12 Influenza, split virus, quadrivalent, PF 8 completed GABO GALANND null, [facility] - [facility] [...] SNOMED-CT Code Diagnosis ICD10 Code Diagnosis Note [id number] [address] [address] [phone] 12/20/2019 19:15:16 12/20/2019 19:34:25 [id number] [facility] [address] [place] [id number] 10/19/2019 16:18:28 10/19/2019 17:04:01 [id number] [place] Brooks [place] [facility] [address] [place] [phone] 11/05/2022 10:25:46 11/05/2022 11:20:25 Contact dermatitis caused by plants [id number] L25.5 Please follow up with PCP or [...] Recorded Advance Directives Directive None Recorded Payers Insurance Date Sequence Insurance Name Policy Number Policy Peng Covered Member ID Peng Member ID Guarantor Name 11/05/2022 1 [place] [employer] Johnathan Wilson [id number] Johnathan Wilson 11/05/2022 2 [place] [facility] [address] Johnathan Wilson [id number] Johnathan Wilson 03/13/2022 [employer] [facility] Johnathan [facility]
== END 2024-09-22 14:28 | disposition home or self-care (01) ==
LOC: HO.HMCH 13:56
PROVIDERS: PCP Physician Assistant; Visit Provider Physician Assistant
DX: I10 Essential (primary) hypertension (principal); E66.813 Obesity, class 3; F31.75 Bipolar disorder, in partial remission, most recent episode depressed; Z68.43 Body mass index [BMI] 50.0-59.9, adult; R73.09 Other abnormal glucose

== ENCOUNTER → 2024-09-22 13:55 | Outpatient (BNVA) | payer MEDICARE, MEDICAID, SELFPAY | PROVIDERS: PCP Physician Assistant; Visit Provider Physician Assistant | DX: I10 Essential (primary) hypertension (principal); E66.813 Obesity, class 3; Z68.43 Body mass index [BMI] 50.0-59.9, adult; F31.75 Bipolar disorder, in partial remission, most recent episode depressed; R73.09 Other abnormal glucose; Z71.3 Dietary counseling and surveillance | CPT/HCPCS: 96127; 99212 ==